=== PATIENT | male | born 1940 | race Caucasian/White ===

== ENCOUNTER 2018-02-24 12:31 | Outpatient (CLI) | payer MEDICARE ==
--- NOTE | 2018-02-24 16:17 | MRI ---
MRI OF RIGHT SHOULDER PERFORMED WITHOUT CONTRAST ENHANCEMENT: HISTORY: Chronic right shoulder pain. History of previous rotator cuff repair. FINDINGS: Some moderate AC joint hypertrophy changes. There is a high-riding humeral head. This is associated with a recurrent rotator cuff tear. This involves the supraspinatus tendon. The tendon is retracte d by as much as 3.2 cm. There is a partial undersurface tear of the undersurface fibers of the anter ior aspect of the infraspinatus tendon. Surgical anchors are noted in the humeral head. There is al so evidence of an undersurface tear of the subscapularis tendon with the biceps tendon being displace d minimally into the joint space. It does not enter the bicipital groove until very late. There kaleb ears to be a split tear of the biceps tendon in addition to these findings. There are some degenerat jhoana changes of the glenohumeral joint space. The inferior glenohumeral ligament is intact. There is very mild atrophy to the supraspinatus muscle. More pronounced atrophy of the superior port ion of the infraspinatus muscle. IMPRESSION: 1. Recurrent rotator cuff tear with a full-thickness supraspinatus tendon tear being retracted by ap proximately 3.2 cm. The AP dimension of the full-thickness component of the tear is approximately 2 cm. There is an undersurface component extending into the infraspinatus tendon. There is very mild atrophy of the supraspinatus muscle and more pronounced atrophy of the infraspinatus. 2. In addition, there is a partial undersurface tear of the subscapularis tendon with subluxation of the biceps tendon. It appears to be more subluxed into the substance of the subscapularis tendon an d there appears to be an associated split tear of the intraarticular portion of the biceps tendon. POS: C
== END 2018-02-24 12:32 | disposition home or self-care (01) ==
LOC: SCSMRI 12:31
PROVIDERS: ATTEND Orthopaedic Surgery
DX: M25.511 Pain in right shoulder (principal); M75.121 Complete rotator cuff tear or rupture of right shoulder, not specified as traumatic; M62.511 Muscle wasting and atrophy, not elsewhere classified, right shoulder

== ENCOUNTER 2018-03-06 15:00 | Outpatient (CLI) | payer MEDICARE ==
--- NOTE | 2018-03-06 21:27 | MRI ---
MRI OF LUMBAR SPINE PERFORMED WITHOUT CONTRAST ENHANCEMENT: 03/06/18 COMPARISON: An MRI study of 08/22/16 done at [facility]. HISTORY: Spinal stenosis, back pain. Scoliosis convexed to the right is again demonstrated. Vertebral bodies a re normal in height. There is fairly pronounced disc narrowing at L2-3, L3-4, L4-5 and L5-S1. There i s no significant periaortic adenopathy demonstrated. Bilateral renal cysts are again noted. T12-L1: Unremarkable. L1-2: Disc bulge is present at this level without significant canal stenosis. There is mild left side d foraminal narrowing. L2-3: Degenerative facet changes at this level are associated with some borderline canal narrowing. T he facet changes are worse on the left. There is a left sided foraminal narrowing. L3-4: There is borderline central canal stenosis noted. Facet changes are associated with some modera te left sided foraminal narrowing. L4-5: Mild degree of canal narrowing with prominent degenerative facet changes. There is disc bulge. There is moderate right foraminal stenosis. L5-S1: Degenerative facet changes more prominent on the right at this level. Associated some mild rig ht sided foraminal stenosis. Also mild left sided foraminal narrowing. IMPRESSION: Areas of mild canal narrowing as discussed above with areas of foraminal stenosis also noted. POS: [facility]
== END 2018-03-06 15:01 | disposition home or self-care (01) ==
LOC: SCSMRI 15:00
PROVIDERS: ATTEND Nurse Practitioner Family
DX: M48.062 Spinal stenosis, lumbar region with neurogenic claudication (principal); M99.83 Other biomechanical lesions of lumbar region
CPT/HCPCS: 72148

== ENCOUNTER 2018-08-04 00:14 | Outpatient (CLI) | payer MEDICARE ==
[2018-08-04 12:58] LABS: Hemoglobin 14.3 g/dL (14.0-18.0); Mean Corpuscular HGB CONC 30.7 g/dL (32.0-36.0); Mean Corpuscular Hemoglobin 29.4 pg (27.0-31.0); Mean Corpuscular Volume 95.7 fL (78.0-98.0); Mean Platelet Volume 8.6 fL (7.4-10.4); Platelet Count 154 thou/uL (130-400); RBC Distribution Width 12.7 % (11.5-14.5); Red Blood Cell (RBC) Count 4.85 mill/uL (4.70-6.10); White Blood Cell (WBC) Count 4.7 thou/uL (4.8-10.8)
[2018-08-04 13:05] LABS: Bilirubin Small (Negative); Blood, Urine Negative (Negative); Clarity CLEAR (Clear); Glucose, Urine (Dipstick) Negative (Negative); Leukocyte Trace (Negative); Nitrite Negative (Negative); Protein, Urine (Dipstick) 30 mg/dL (Neg-Trace); Urobilinogen 0.2 mg/dL (0.2-1.0)
[2018-08-04 13:21] LABS: Anion Gap 9 mmol/L (10-20); BUN (Urea Nitrogen) 22 mg/dL (8.4-25.7); Calc. Creatinine Clearance 0 mL/min (70-130); Carbon Dioxide 30 mmol/L (23-31); Chloride 109 mmol/L (98-107); Estimated GFR-MDRD 69; Glucose 91 mg/dL (83-110); Sodium 144 mmol/L (136-145)
[2018-08-04 13:26] LABS: Bacteria/HPF None Seen HPF (None Seen); Hyaline Casts/LPF 7-10 HYALINE CAST LPF (0-3 Hyaline); Pathc Cast-AUWi Flag 0.54 (0-2.49); RBC/HPF 0-3 HPF (0-3); Squamous Epithelial 0-3 HPF (0-3)
== END 2018-08-04 00:15 | disposition home or self-care (01) ==
LOC: LABBT 00:14
PROVIDERS: ATTEND Orthopaedic Surgery
DX: Z01.818 Encounter for other preprocedural examination (principal); M19.011 Primary osteoarthritis, right shoulder; Z98.890 Other specified postprocedural states
CPT/HCPCS: 80048; 81001; 85027; 87081; 93005; 93010

== ENCOUNTER 2018-08-06 07:33 | Inpatient (IN) | payer MEDICARE ==
[2018-08-04 11:24] VITALS: BMI 25.1
[2018-08-06] MEDS ORDERED: ceFAZolin Sodium 2 GM/100 ML BAG ONE (07:50)
[2018-08-06] MEDS ORDERED: Midazolam HCl 2 mg/2 ml Vial ONE (08:29)
[2018-08-06] MEDS ORDERED: Fentanyl 100 MCG/2 ML VIAL ONE ×3 (08:30→13:18)
[2018-08-06] MEDS ORDERED: Zolpidem Tartrate 5 MG TAB PO PRN ×2 (08:57→13:05)
[2018-08-06] MEDS ORDERED: Ondansetron PF 4 MG/2 ML Vial IVP PRN ×2 (08:57→13:05)
[2018-08-06] MEDS ORDERED: Promethazine HCl 25 MG/ML VIAL IM PRN ×3 (08:57→13:05)
[2018-08-06] MEDS ORDERED: HYDROcodone/Acetaminophen 10/325 mg Tablet PO PRN ×3 (08:57→13:05)
[2018-08-06] MEDS ORDERED: traMADol HCl 50 MG TAB PO PRN ×4 (08:57→13:05)
[2018-08-06] MEDS ORDERED: Fentanyl 100 MCG/2 ML VIAL IV PRN ×2 (08:59→13:07)
[2018-08-06] MEDS ORDERED: Tranexamic Acid 1,000 MG/10 ML VIAL ONE ×2 (11:17→12:29)
[2018-08-06] MEDS ORDERED: ePHEDrine/0.9% NaCl/PF SYRINGE 50 mg/10 ml ONE (11:19)
[2018-08-06] MEDS ORDERED: Sodium Chloride 0.9% 100 ML ONE (11:20)
[2018-08-06] MEDS ORDERED: Ropivacaine 0.2% HCl/PF (40 MG/20 ML VIAL) ONE (12:16)
[2018-08-06] MEDS ORDERED: Ropivacaine 0.5% HCl/PF (150 MG/30 ML VIAL) ONE (12:16)
[2018-08-06] MEDS ORDERED: Glycopyrrolate 0.2 MG/ML 5 ML SYRINGE ONE (12:17)
[2018-08-06] MEDS ORDERED: PROPOFOL 200 MG/20 ML VIAL ONE (12:17)
[2018-08-06] MEDS ORDERED: Ondansetron PF 4 MG/2 ML Vial ONE (12:17)
[2018-08-06] MEDS ORDERED: Dexamethasone 20 MG/5 ML VIAL ONE (12:17)
[2018-08-06] MEDS ORDERED: Rocuronium Bromide 10 MG/ML (10ML VIAL) ONE (12:17)
[2018-08-06] MEDS ORDERED: Ketorolac Tromethamine 30 MG/ML VIAL ONE (12:17)
[2018-08-06] MEDS ORDERED: ePHEDrine 50 MG/ML VIAL ONE (12:17)
[2018-08-06] MEDS ORDERED: Promethazine HCl 25 MG/ML VIAL SLOW IVP PRN (12:18)
[2018-08-06] MEDS ORDERED: Ondansetron HCl/PF 4 MG/2 ML Vial IVP PRN (12:18)
[2018-08-06] MEDS ORDERED: Loratadine 10 MG TAB PO PRN (12:38)
[2018-08-06] MEDS ORDERED: Nitroglycerin 0.4 MG TAB (25 Tab Bottle) SL PRN (12:39)
[2018-08-06] MEDS ORDERED: ALPRAZolam 0.5 MG TAB PO PRN (12:40)
[2018-08-06] MEDS ORDERED: DYMISTA EA NARE PRN (12:41)
[2018-08-06] MEDS ORDERED: Calcium Carbonate 500 MG ChewTAB PO PRN (12:42)
[2018-08-06] MEDS ORDERED: Fioricet 325/50/40 mg Tablet PO PRN (12:42)
[2018-08-06] MEDS ORDERED: hydrALAZINE 20 MG/ML VIAL ONE (12:43)
[2018-08-06] MEDS ORDERED: ROPIVACAINE 0.2% NERVE BLCK SCH (13:05)
--- NOTE | 2018-08-06 14:06 | RAD ---
2 VIEW RIGHT SHOULDER: Date; 08/06/18 INDICATION: Status post right reverse total shoulder arthroplasty. FINDINGS: There is a postoperative appearance of the regional soft tissues with soft tissue air and overlying m etallic bashir. Reverse right shoulder arthroplasty is in place. No hardware complication is seen. IMPRESSION: Postoperative right shoulder. POS: [facility]
[2018-08-06] MEDS ORDERED: Bisacodyl 10 MG SUPP PR PRN (14:23)
[2018-08-06] MEDS ORDERED: diphenhydrAMINE 50 MG CAP PO PRN (14:23)
[2018-08-06] MEDS ORDERED: Acetaminophen 325 MG TAB PO PRN (14:23)
[2018-08-06] MEDS: HYDROcodone/Acetaminophen 10/325 mg Tablet PO PRN (15:29)
[2018-08-06] MEDS: Dextrose 5 %-0.45 % NaCl 1,000 ML IV SCH (15:30)
[2018-08-06] MEDS: Docusate Calcium (SURFAK) 240 MG CAP PO SCH ×2 (15:30→21:20)
[2018-08-06] MEDS: CEFAZOLIN 2 GM in Premix Bag 1 BAG IVPB SCH (16:18)
[2018-08-06] MEDS ORDERED: Vancomycin HCl 1 GM in Premix Bag 1 BAG IVPB SCH (18:00)
[2018-08-06] MEDS ORDERED: CIALIS 5 MG PO SCH (18:00)
[2018-08-06] MEDS ORDERED: Senokot 8.6 MG TAB PO PRN (19:23)
[2018-08-06] MEDS ORDERED: Non-Formulary Item 1 EACH (Azelastine/Fluticasone [Dymista Nasal Spray] 1 SPRAY) EA NARE PRN (19:24)
[2018-08-06] MEDS ORDERED: hydrALAZINE 20 MG/ML VIAL SLOW IVP PRN (19:32)
[2018-08-06] MEDS ORDERED: clonazePAM 1 MG TAB PO SCH (21:00)
[2018-08-06] MEDS ORDERED: Tamsulosin HCl 0.4 MG CAP PO SCH (21:00)
[2018-08-06] MEDS ORDERED: Mirtazapine 15 MG TAB PO SCH (21:00)
[2018-08-06] MEDS ORDERED: Ezetimibe 10 MG TAB PO SCH (21:00)
[2018-08-06] MEDS ORDERED: traZODone HCl 150 MG TAB PO SCH (21:00)
[2018-08-06] MEDS: Famotidine 20 MG TAB PO SCH (21:20)
[2018-08-06] MEDS: Carvedilol 6.25 MG TAB PO SCH (21:21)
[2018-08-06] MEDS: Diazepam 5 MG TAB PO SCH (21:23)
[2018-08-07] MEDS: CEFAZOLIN 2 GM in Premix Bag 1 BAG IVPB SCH (00:07)
--- NOTE | 2018-08-07 02:09 | CON ---
DATE OF CONSULTATION: PRIMARY CARE PHYSICIAN: Kojo Hector MD. PRIMARY TEAM: Dr. Avani Hirsch. REASON FOR CONSULTATION: Medical management. HISTORY OF PRESENT ILLNESS: This is a 78-year-old white male with a known history of rotator cuff tear in his right shoulder, previously repaired several years ago. He has had recurrent tear and came in for a reverse total shoulder arthroplasty. The patient had procedure done this morning. He has been doing well postoperatively except for he had some urinary retention when they tried to remove the Harris, so he has a Harris back in now. He also had some elevated blood pressures in the PACU after surgery that required some p.r.n. hydralazine, and this come down now and fluctuating between 140s to 160s, otherwise doing well. PAST MEDICAL HISTORY: 1. Hypertension. 2. Coronary artery disease. 3. Hyperlipidemia. 4. Benign prostatic hyperplasia. 5. Arthritis. 6. Severe scoliosis with chronic back pain. PAST SURGICAL HISTORY: 1. Tonsillectomy. 2. Hernia repair. 3. Laminectomy in 2006. 4. Right knee surgery x2. 5. Vasectomy. 6. Cardiac stents x5. 7. Rotator cuff repair in 2004. 8. Skin cancer removal. SOCIAL HISTORY: No history of tobacco, alcohol, or illicit drug use. He is , lives with his who is present in the room. Her name is Georgette Bolivar, and she would be his medical decision maker should he be incapacitated. FAMILY HISTORY: Father had elevated cholesterol and at 62 years old of heart disease. Mother is at 32 years old of breast cancer. He also had an uncle with heart attack. ALLERGIES: BACTRIM. MEDICATIONS: 1. Percogesic 325/12.5 mg one tablet q.4 hours as needed. 2. Cialis 5 mg at night as needed. 3. Alprazolam 0.5 mg 4 times a day as needed. 4. Aspirin 81 mg daily. 5. Dymista nasal spray 1 spray in each nostril twice a day as needed. 6. Fioricet 2 tablets every 6 hours as needed for migraines. 7. Tums 500 mg as needed. 8. Candesartan cilexetil 32 mg each morning. 9. Carisoprodol 350 mg 4 times a day. 10. Carvedilol 6.25 mg tablets, 1-1/2 tablets twice a day. 11. Klonopin 1 mg at night. 12. Diazepam 5 mg twice a day. 13. Surfak 240 mg 3 times a day. 14. Acetamide 10 mg at night. 15. Fergon 240 mg daily. 16. [place] 10/325 one tablet 4 times a day. 17. Xyzal 5 mg twice a day as needed. 18. Remeron 15 mg at night. 19. Multivitamin daily. 20. Nitrostat 0.4 mg sublingual q.5 hours as needed for chest pain. 21. Prilosec 40 mg at night. 22. Trazodone 150 mg 1 to 2 tablets at night for insomnia. REVIEW OF SYSTEMS: CONSTITUTIONAL: No fevers. No chills. EYES: No double vision or blurred vision. ENT: No congestion, drainage, or sore throat. CARDIOVASCULAR: No chest pain. No palpitations or racing heart. PULMONARY: No coughing, wheezing, or shortness of breath. GASTROINTESTINAL: No abdominal pain. No nausea or vomiting. No diarrhea or current constipation. He does have to take regular laxatives every day to prevent constipation on his pain medications. GENITOURINARY: No dysuria or hematuria. He did have the urinary retention post surgery as per the HPI and currently has a Harris in place. MUSCULOSKELETAL: He has chronic back pain and postsurgical pain in the right shoulder that is decently controlled right now. SKIN: No rashes or lesions noted. NEUROLOGIC: No numbness, tingling, or focal weakness. PHYSICAL EXAMINATION: VITAL SIGNS: Blood pressure 144/74, pulse 76, respirations 20, O2 saturation 93 % on room air, temperature 98.0. GENERAL: This is a well-developed, well-nourished white male, in no acute distress. HEENT: Pupils are equal, round, and reactive to light. Oropharynx clear without lesions, erythema, or exudate. NECK: Supple. No lymphadenopathy. No thyroid nodules or enlargement. No JVD. HEART: Regular rate and rhythm. No murmurs, rubs, or gallops. LUNGS: Clear to auscultation bilaterally. No wheezes, crackles, or rhonchi. ABDOMEN: Soft and nontender to palpation. Normoactive bowel sounds. No hepatosplenomegaly or other masses. EXTREMITIES: No clubbing, cyanosis, or edema. The patient does have a postsurgical dressing over his right shoulder and has his right arm in a sling. SKIN: No rashes or lesions noted. NEUROLOGIC: He has intact sensation in all extremities. He is able to walk with a steady gait. No facial droop. PSYCHIATRIC: Alert and oriented x3. Normal mood and affect. PREOPERATIVE LABS: CBC with a white blood cell count of 4.7, the rest is normal. Basic metabolic panel is notable for chloride of 109 and anion gap of 9, the rest was normal. Urinalysis showed 30 protein, trace ketones, small bilirubin, trace leukocyte esterase, 7 to 10 white blood cells, and no bacteria seen. EKG done preoperatively shows sinus bradycardia in the 50s with left ventricular hypertrophy, but no acute ST-segment changes. ASSESSMENT: 1. Rotator cuff tear, status post reverse total shoulder arthroplasty of the right side, doing well postoperatively. 2. Known coronary artery disease. We will resume patient's aspirin and Zetia, and we will try and keep blood pressure under control. 3. Hypertension, labile due to pain. We will resume patient's home blood pressure medications. We will give p.r.n. hydralazine as needed for severe elevations. 4. Acute urinary retention secondary to benign prostatic hyperplasia. We will start the patient on tamsulosin 0.4 mg each night. The patient may be able to have the Harris successfully removed after few days on medication. If this problem persists then he will need to see his urologist, Dr. Wallace. 5. Gastrointestinal prophylaxis. We will put the patient on famotidine twice a day. 6. Deep venous thrombosis prophylaxis. The patient is on sequential compression devices. 7. Chronic back pain and postoperative pain. Anesthesiology has been consulted for pain management. Job ID: [id number] [facility]
[2018-08-07] MEDS: HYDROcodone/Acetaminophen 10/325 mg Tablet PO PRN ×3 (03:46→14:33)
[2018-08-07] MEDS: Docusate Calcium (SURFAK) 240 MG CAP PO SCH (07:58)
[2018-08-07] MEDS: Diazepam 5 MG TAB PO SCH (07:58)
[2018-08-07] MEDS: Carvedilol 6.25 MG TAB PO SCH (07:59)
[2018-08-07] MEDS: Famotidine 20 MG TAB PO SCH (07:59)
--- NOTE | 2018-08-07 08:00 | OP ---
DATE OF PROCEDURE: 08/06/2018 PREOPERATIVE DIAGNOSES: 1. Right full-thickness retracted supraspinatus tear with leading edge infraspinatus. 2. Biceps tendinopathy. PROCEDURES PERFORMED: 1. Right reverse shoulder arthroplasty. 2. Biceps tenodesis. HORSE SHOW JUDGE: Rocael Tinsley PA-C. ANESTHESIA: Dr. Howe. The patient received general endotracheal intubation with interscalene block. ESTIMATED BLOOD LOSS: 300 mL. TOURNIQUET TIME: None. IMPLANTS: A 25 mm base plate with a 25 x 36 mm standard Glenosphere, a 6B stem , a high offset tray with a 36 x 6 mm poly, anterior and posterior locking screws 23 and 35 and 20 and 29 nonlocking screws superior and inferior. ANTIBIOTICS: Ancef 2 g, vancomycin 1 g, TXA 1 g. COMPLICATIONS: None. HISTORY OF PRESENT ILLNESS: Mr. Bolivar is a 78-year-old male who had a history of previous mini open rotator cuff repair by Dr Peng Drummond years ago. The patient came in to see me on multiple occasions in the last year for elevated pain. The patient is followed by his primary care provider for chronic pain management. He had a full-thickness rotator cuff tear, was 3 cm retracted, had a leading edge subscapularis tear with changes of the biceps. I discussed with the patient risks and benefits of a revision rotator cuff repair versus superior capsular reconstruction versus the reverse. I discussed the risks and benefits of all procedures. After a long discussion with the patient, he elected with the right reverse shoulder arthroplasty. I discussed he would not have good overhead external rotation, but some overhead elevations likely improve the pain control. I discussed the risks and benefits of surgery to include pain, scar, bleeding, infection, damage to vital structures, decreased range of motion and strength, nonunion, malunion of any fractures, loss of life or limb. The patient understood these risks and benefits and elected to proceed. DESCRIPTION OF PROCEDURE: Time-out was performed designating the patient's right upper extremity as the operative site based on site, consents, and marking. After time-out, the patient's right upper extremity was prepped and draped in a sterile fashion. The patient had a deltopectoral incision made, came down onto the vein and it was taken medially, cauterized and ultimately was ligated. We exposed the patient's conjoined and deltopectoral interval, we came down and found his biceps was flattened and frayed throughout its course. We came down, the subscap was peeling off which we took down the subscap and the anterior capsule to expose the head. There was no attachment. The superior cuff had been torn off and retracted. We exposed the head, cut the articular surface removing the articular surface. We exposed the patient's glenoid. We did a 360 degrees of the labrum staying on bone using a curette inferior and rongeur to remove any inferior cartilage, placed my 25 mm base plate centered inferiorly at a good position. We then drilled and reamed and then cleaned up the peripheral surface and placed our 25 mm base plate, placed the anterior and posterior nonlocking screws in position, drilling and filling the superior and inferior locking screws, had a good stable base plate placement. A 36 mm standard sphere in position and screwed into place. We backed the humerus. We had broached and placed originally a 6 tray and cover to expose the head. To expose the glenoid, we moved back and elected to place a final size 6 into position. We trialed with a 6 high offset tray, and we were able to get it into place at the 6 o'clock position in the most lateral offset, I felt like we had overall good stability, had no shuck. We then washed. We placed our final stem and I placed a #5 Ethibond around the stem to help sew the subscap down to its self. We then reduced the implant in position with good overall tracking with the final implant. We sewed the subscap back down to the #5 Ethibond, cut the stitches. We took the biceps and used #1 Vicryl and sewed it into the soft tissue from the remnant cuff as well as left subscap and the posterior soft tissues to help with three [id number] stitches to close the interval as best we could. We then washed, closed the deltopectoral interval with 0 Vicryl, closed the subcu with 2 -0 and bashir. The patient will be admitted to the hospital. I am concerned given the patient's medical history. We will consult Medicine. Pain will be following in-house for his pain control. There is concern about polypharmacy given the patient's medication list. The patient will be followed in-house and discharged home either tomorrow or the next day depending on how he does. Job ID: [id number] [facility]
[2018-08-07] MEDS ORDERED: Milk Of Magnesia 30 ML UDCUP PO PRN ×2 (08:15→09:00)
[2018-08-07] MEDS ORDERED: Polyethylene Glycol 3350 17 GM Packet PO PRN (08:15)
[2018-08-07] MEDS ORDERED: Eucerin (Mineral Oil/Petrolatum,White) 30 gm Jar TOP PRN (08:15)
[2018-08-07] MEDS: Dextrose 5 %-0.45 % NaCl 1,000 ML IV SCH (08:21)
[2018-08-07] MEDS ORDERED: Senokot S 8.6-50 MG TAB PO SCH (09:00)
[2018-08-07] MEDS ORDERED: Aspirin 81 mg Enteric Coated Tablet PO SCH (09:00)
[2018-08-07] MEDS ORDERED: Ferrous Gluconate 324 MG TAB PO SCH (09:00)
[2018-08-07] MEDS ORDERED: Multivit, Therapeutic 1 TAB PO SCH (09:00)
[2018-08-07 11:42] VITALS: TEMP 97.4
--- NOTE | 2018-08-07 15:27 | DIS ---
DATE OF ADMISSION: 08/06/2018 DATE OF DISCHARGE: 08/07/2018 PREOPERATIVE DIAGNOSES: 1. Right shoulder rotator cuff tear with history of repair. 2. Hypertension. 3. Coronary artery disease. 4. Hyperlipidemia. 5. Benign prostatic hyperplasia. 6. Scoliosis, severe chronic back pain. 7. History of chronic pain treatment. HISTORY OF PRESENT ILLNESS: Mr. Bolivar is a 78-year-old male with history of right shoulder pain, came in for right reverse total shoulder arthroplasty. Underwent right reverse total shoulder arthroplasty yesterday, the patient postoperatively had some urinary retention, has been followed by Dr. Wallace. Harris was placed after an , so therefore, the patient had a Harris bag in place and follow up with Dr. Wallace in a week. The patient will keep his sling on, begin elbow, wrist, and hand motion. Follow up with me in 2 weeks to begin passive range of motion of his right reverse shoulder arthroplasty. The patient will remain non-weight bearing. He was given 15 hydrocodone tablets, which will all he will receive. He is followed Dr. Hector, who will refill his previous chronic pain medications coming up at the end of this month. The patient will be discharged with a Harris leg bag and sling and will follow up with me as stated above. Job ID: [id number]
[2018-08-07 15:57] VITALS: BP 164/74
--- NOTE | 2018-08-07 17:48 | PDOC.PN ---
- Subjective Encounter Start Date: 08/07/18 Encounter Start Time: 09:30 Patient seen and examined for med mngt. No new complaints. No overnight events - Objective MAR Reviewed: Yes Vital Signs & Weight: Vital Signs (12 hours) Temp Pulse Resp BP BP Pulse Ox 08/07/18 15:40 97.4 F L 69 16 164/74 H 96 08/07/18 11:42 97.4 F L 60 18 146/78 H 97 08/07/18 08:10 97.7 F 74 20 137/71 94 L 08/07/18 07:59 137/71 08/07/18 07:58 94 L Weight Weight 170 lb I&O: 08/06/18 08/07/18 08/08/18 06:59 06:59 06:59 Intake Total 2305 600 Output Total 2925 350 Balance -620 250 Phys Exam - Physical Examination Constitutional: NAD Respiratory: no wheezing, no rhonchi Cardiovascular: RRR, no rub Gastrointestinal: soft, non-tender, positive bowel sounds Musculoskeletal: no edema Dx/Plan - Plan DVT proph w/SCDs 1. CAD 2. HTN 3. Chronic pain syndrome 4. Anxiety 5. Urinary retention s/p sin catheter PLAN: Cont current meds as below Will follow. Full code. DPOA - self/family Review of Systems - Review of Systems Respiratory: negative: Cough, Dry, Shortness of Breath, Hemoptysis, SOB with Excertion, Pleuritic Pain, Sputum, Wheezing Cardiovascular: negative: chest pain, palpitations, orthopnea, paroxysmal nocturnal dyspnea, edema, light headedness, other - Medications/Allergies Allergies/Adverse Reactions: Allergies Allergy/AdvReac Type Severity Reaction Status Date / Time sulfamethoxazole Allergy Rash Verified 08/04/18 11:26 [From Bactrim] trimethoprim [From Bactrim] Allergy Rash Verified 08/04/18 11:26
== END 2018-08-07 17:15 | disposition home or self-care (01) | DRG 483 ==
LOC: SDC 07:33 → SURG A 12:48
PROVIDERS: ADMIT Orthopaedic Surgery; ATTEND Orthopaedic Surgery
PROC: 0RRJ00Z Replacement of Right Shoulder Joint with Reverse Ball and Socket Synthetic Substitute, Open Approach (ICD-10-PCS; principal; 2018-08-06)
PROC: 0LS30ZZ Reposition Right Upper Arm Tendon, Open Approach (ICD-10-PCS; 2018-08-06)
PROC: 0T9B70Z Drainage of Bladder with Drainage Device, Via Natural or Artificial Opening (ICD-10-PCS; 2018-08-06)
DX: M75.121 Complete rotator cuff tear or rupture of right shoulder, not specified as traumatic (principal); I25.10 Atherosclerotic heart disease of native coronary artery without angina pectoris; I10 Essential (primary) hypertension; N40.1 Benign prostatic hyperplasia with lower urinary tract symptoms; R33.8 Other retention of urine; M54.9 Dorsalgia, unspecified; E78.5 Hyperlipidemia, unspecified; M19.90 Unspecified osteoarthritis, unspecified site; M41.9 Scoliosis, unspecified; G89.4 Chronic pain syndrome; F41.9 Anxiety disorder, unspecified; M75.21 Bicipital tendinitis, right shoulder; Z98.890 Other specified postprocedural states; Z90.89 Acquired absence of other organs; Z98.61 Coronary angioplasty status
CPT/HCPCS: A4306; J0360; J0690; J1100; J1885; J2250; J2405; J2704; J2795; J3010; J3370; J3490; J7050

== ENCOUNTER 2019-09-17 21:23 | Inpatient (IN) | payer MEDICARE ==
[2019-09-17] MEDS ORDERED: EPINEPHrine 4 MG in Dextrose 5% in Water 250 ML IV SCH (23:15)
[2019-09-17 23:43] LABS: Actual Bicarbonate (HCO3a) 21.6 mEq/L (22-28); Base Excess (BEa) -5.6 mEq/L (-2.0 to +3.0); CO2 Tension 49.1 mmHg (35.0-45.0); Calcium, Ionized 1.09 mmol/L (1.12-1.30); Carboxyhemoglobin (COHb) 0.5 gm% (0.0-3.0); Hemoglobin (Hb) 12.8 g/dL (14.0-18.0); O2 Tension (PaO2), arterial 109.8 mmHg (> 70.0); Potassium - ABG Lab 5.69 mmol/L (3.70-5.30); pH, Arterial 7.26 (7.35-7.45)
[2019-09-17 23:44] LABS: ALV-art Gradient 541.825 (0-20); Puncture Site RRA
--- NOTE | 2019-09-18 01:01 | PDOC.HHP ---
Hospitalist HPI - History of Present Illness s/p cardiac arrest History of Present Illness: most of the history was obtain from from phone call with and transfer papers Case of an 79y/o male with pmhx of cad htn and hypercholesterolemia who comes to hospital transfer from [facility] s/p cardiac arrest. apparently patient was o his usual state of health until today, when according to he was eating, she went to do some dishes and heard some coughing and gurgling sounds, when she went to see the patient he was face down on the table with blue lips and called the ems. at arrival patient was found hypoxic and with bradicardia and the went into asystole where did 3 cycles of cpr and had a LMA placed. patient arrived at [facility] where he again coded again and receive 2 cycles and a EET was placed and epi drip was started. patient was transfered to this institution for critical care coverage dr oswald accpeted case. Hospitalist ROS - Review of Systems ROS unobtainable: due to endotracheal tube Hospitalist History - Past Medical History Cardiac: reports: CAD, HTN, Hyperlipidemia - Past Surgical History Other Surgical History: unable to asses due to pt mental status - Family History Other Family History: unable to asses due to mental status - Social History Living Situation: With Family Other Social History: unable to asses due to mental status - Exam General Appearance: ill appearing Eye: PERRL, anicteric sclera ENT: normocephalic atraumatic, no oropharyngeal lesions Neck: supple, symmetric, no JVD Heart: RRR, no murmur, no gallops Respiratory: CTAB, no wheezes, no rales Gastrointestinal: soft, non-tender, non-distended Extremities: no cyanosis, no clubbing, no edema Skin: normal turgor, no lesions, no rashes Neurological - other findings: sedated Musculoskeletal - other findings: sedated Psychiatric - other findings: sedated Hospitalist Results - Labs Lab results: ABG pH 7.26 (7.35-7.45) L 09/17/19 23:21 ABG pCO2 49.1 mmHg (35.0-45.0) H 09/17/19 23:21 ABG pO2 109.8 mmHg (> 70.0) H 09/17/19 23:21 Hospitalist H&P A/P - Problem (1) Sudden cardiac arrest Code(s): I46.9 - CARDIAC ARREST, CAUSE UNSPECIFIED Status: Acute (2) CAD (coronary artery disease) Code(s): I25.10 - ATHSCL HEART DISEASE OF [place] CORONARY ARTERY W/O ANG PCTRS Status: Acute (3) MINO (acute kidney injury) Code(s): N17.9 - ACUTE KIDNEY FAILURE, UNSPECIFIED Status: Acute (4) Hyperkalemia Code(s): E87.5 - HYPERKALEMIA Status: Acute (5) Respiratory failure Code(s): J96.90 - RESPIRATORY FAILURE, UNSP, UNSP W HYPOXIA OR HYPERCAPNIA Status: Acute (6) Leukocytosis Code(s): D72.829 - ELEVATED WHITE BLOOD CELL COUNT, UNSPECIFIED Status: Acute (7) Anoxic brain damage Status: Acute - Plan Plan: s/p cardiac arrest - had two episodes of cardiac arrest, seems to be secondary to respiratory failure. ekg w/o st ischemic changes. initial troponin negatives , i expect this to increase after cpr. will order serial troponins to follow trend, will also get a 2d echo and contracts specialist evaluation. his contracts specialist is amna rice - from the history patient seems to have aspirated resulting in hypoxia, bradycardia with subsequent cadiac arrest. patient intubated at site. pca consulted f/u abgs suspected anoxic brain injury - patient s/p 2 cardiac arrest, unresponsive w/o sedation. h/s for anoxic brain injury. will order a head ct and consult neurologist for evaluation mino - likely secondary to cardiac arrest, will start ivfs f/u u/o and creatinine values hyperkalemia - at initial evaluation 6.6, ekg w/o peak t waves or pr prologation. pt treated w ivfs repeated k w abgs at 5.6, will continue to monitor leukocytosis - patient with leukocytosis 26.3, w elevated lactid acid. likely secondary to cardiac arrest, none the less sepsis protocol was started at the [facility] w ivfs cultures and abx cefe/vanc. refers pt has been having cough for months, does refers his pcp was seeing pt for this, seems to be seasonal allergies. will contine w broad spectrum abx
[2019-09-18 02:19] LABS: Lactic Acid 2.4 mmol/L (0.5-2.2)
[2019-09-18 04:25] VITALS: BMI 25.5
[2019-09-18] MEDS ORDERED: Vancomycin 1 GM in Premix Bag 1 BAG IVPB SCH (06:15)
[2019-09-18] MEDS ORDERED: Cefepime 2 GM in Sodium Chloride 0.9% 100 ML IVPB SCH (06:30)
[2019-09-18 07:04] LABS: ALT (SGPT) 48 U/L (8-55); AST (SGOT) 47 U/L (5-34); Albumin 3.3 g/dL (3.4-4.8); Alkaline Phosphatase 63 U/L (40-110); Anion Gap 14 mmol/L (10-20); BUN (Urea Nitrogen) 33 mg/dL (8.4-25.7); Bilirubin, Total 0.6 mg/dL (0.2-1.2); Calc. Creatinine Clearance 46 mL/min (70-130); Calcium 7.7 mg/dL (7.8-10.44); Carbon Dioxide 21 mmol/L (23-31); Chloride 113 mmol/L (98-107); Estimated GFR-MDRD 44; Globulin 2.2 g/dL (2.4-3.5); Glucose 169 mg/dL (83-110); Potassium 4.5 mmol/L (3.5-5.1); Protein, Total 5.5 g/dL (5.8-8.1); Sodium 143 mmol/L (136-145)
[2019-09-18 07:45] LABS: Band 18 % (5-11); Hemoglobin 11.8 g/dL (14.0-18.0); Lymphocytes 7 % (21-51); MDiff Complete? YES; Mean Corpuscular HGB CONC 32.1 g/dL (32.0-36.0); Mean Corpuscular Hemoglobin 31.9 pg (27.0-31.0); Mean Corpuscular Volume 99.3 fL (78.0-98.0); Mean Platelet Volume 9.1 fL (7.4-10.4); Monocytes 8 % (0-10); Neutrophil 67 % (42-75); Platelet Count 156 thou/uL (130-400); RBC Distribution Width 13.2 % (11.5-14.5); White Blood Cell (WBC) Count 18.2 thou/uL (4.8-10.8)
--- NOTE | 2019-09-18 08:52 | RAD ---
PORTABLE CHEST: History: Respiratory failure. FINDINGS: Heart size appears borderline. Endotracheal and NG tubes are in satisfactory position. There is some right parahilar and upper lobe infiltrative lung change present. IMPRESSION: 1. Increased parenchymal changes in the right parahilar and upper lobe regions suggesting some infilt rative change. 2. Endotracheal and NG tubes in satisfactory position. POS: [facility]
[2019-09-18] MEDS: Sodium Chloride 0.9% 1,000 ML IV SCH ×3 (09:21→21:47)
[2019-09-18] MEDS: Cefepime 2 GM in Sodium Chloride 0.9% 100 ML IVPB SCH ×2 (09:33→21:37)
[2019-09-18] MEDS: Acetaminophen 650 MG Suppository PR PRN (12:53)
--- NOTE | 2019-09-18 13:00 | CON ---
DATE OF CONSULTATION: 09/18/2019 INDICATION FOR CONSULTATION: A 79-year-old gentleman with an acute respiratory cardiac arrest. HISTORY OF PRESENT ILLNESS: This is a 79-year-old gentleman, who is on the ventilator, unresponsive, and has what appears to be neurological damage with jerking. He was at home yesterday evening, he was eating some scrambled eggs and some dinner with some toast and apparently the was in the kitchen and she heard him hit the table. She turned around, he had a fall face-first on the table and she tried to do CPR after calling 911. 911 arrived about 5 minutes later and noticed that the patient apparently was not breathing. He was intubated and CPR was initiated and was continued. She was doing chest compressions, but no respiratory breaths were given by the family. He does have a history of coronary artery disease. He has undergone angioplasty and stent placement x3 several years ago and then underwent repeat angioplasty and stent placement x2 by Dr. Scherer about 2 years ago. He has had recently no complaints of chest pain. He has had ablation within the last few months. He has also followed by Dr. Kojo Hector . He has had a history of benign prostatic hypertrophy. He is followed by Dr. Wallace. Otherwise, he has been doing relatively well according to the . But, she says he has been complaining of being fatigued recently, but has not had any chest pain or significant shortness of breath. He did not have any history of him having cardiomyopathy from what the says she is aware that he has a bad heart and he has been doing relatively well and staying relatively active at home. PAST MEDICAL HISTORY: Significant for hypertension, hypercholesterolemia, coronary artery disease, and benign prostatic hypertrophy. He may have undergone TURP in the past. REVIEW OF SYSTEMS: A 12-point is relatively unremarkable except for what was noted in the history of present illness. ALLERGIES: HE IS ALLERGIC TO BACTRIM. MEDICATIONS: PHYSICAL EXAMINATION: GENERAL: Reveals an elderly gentleman, who is unresponsive on the ventilator. He has jerking motions, which appear to be due to some type of a neurologic injury. He may be having underlying seizures. HEENT: Unremarkable. Carotid pulses are present without any bruits. CHEST: His chest is actually clear to auscultation. I did not hear any rales, rhonchi, or wheezing. CARDIOVASCULAR: Regular at this time. There are no gross murmurs, heaves, thrills, bruits, or rubs. ABDOMEN: Shows obesity with positive bowel sounds. No organomegaly or masses were noted. I cannot elicit any tenderness obviously at this time. EXTREMITIES: Showed no clubbing, cyanosis, or edema. Pedal pulses are present. NEUROLOGIC: As noted above, he is not sedated. He is on the ventilator and he is unresponsive with jerking motions. LABORATORY DATA: Shows a sodium of 143, potassium 4.5, his BUN was 33, creatinine 1.53, and blood sugar was 169. Lactic acid 2.4. Troponin I was really 0.07, increased up to 0.12 and BNP was 376. DIAGNOSTIC STUDIES: EKG shows a normal sinus rhythm. There were no acute changes. No indication of previous myocardial infarction or ischemia. IMPRESSION AND PLAN: 1. A 79-year-old gentleman with history of coronary artery disease, who underwent angioplasty and stent placement a couple years ago. He has been followed on a routine basis. He has been doing well, who had a sudden respiratory cardiac arrest, which may be due to aspiration with respiratory arrest causing the severe hypoxia and then cardiac arrest or possibly due to arrhythmias, which is yet to be determined. At this time, he appears to had some significant anoxic brain injury, which he may not recover from. Certainly, we will continue to support the patient as much as possible. In the interim, we will try to obtain records from Dr. Scherer's office to see exactly what the status of his heart was on the last echocardiogram, stress test, and on the last cardiac catheterization. We will also obtain an echocardiogram here. We will review that and further recommendations will perhaps depend on the results of the echocardiogram. 2. History of hypertension. Blood pressure is slightly elevated at this time. We will manage his medications with starting more medications to lower the blood pressure. 3. Hypercholesterolemia. At this time, we will hold statins. 4. What appears to be anoxic brain injury. He may or may not recover, this will be in the next 48 hours. Should he not have any improvement, an EEG most likely will be performed. We will review a repeat CT scan, I believe he had one at [facility] already, it did not show any significant abnormalities. This will need to be repeated within the next 48 hours likely. Amos ID: [id number]
--- NOTE | 2019-09-18 13:30 | PDOC.HOSPP ---
- Subjective Encounter Date: 09/18/19 Encounter Time: 08:40 Subjective: is on vent, not sedated, obtunded and has myoclinic jerks all over at bedside - Objective Vital Signs & Weight: Vital Signs (12 hours) Pulse Resp BP Pulse Ox 09/18/19 12:00 20 09/18/19 10:42 85 09/18/19 10:00 20 09/18/19 08:00 20 96 09/18/19 06:48 85 09/18/19 06:00 20 09/18/19 04:00 20 09/18/19 02:30 81 118/66 09/18/19 02:00 20 Weight Weight 178 lb 3.2 oz Most Recent Monitor Data Heart Rate from ECG 85 NIBP 174/71 NIBP BP-Mean 105 Respiration from ECG 22 SpO2 98 I&O: 09/17/19 09/18/19 09/19/19 06:59 06:59 06:59 Intake Total 949 Output Total 950 665 Balance -1 -665 Result Diagrams: 09/18/19 06:32 09/18/19 06:32 Hospitalist ROS - Medication Medications: Active Medications Generic Name Dose Route Start Last Admin Trade Name Freq PRN Reason Stop Dose Admin Acetaminophen 650 mg 09/18/19 00:29 09/18/19 12:53 Tylenol [place] 650 mg Q4H PRN Administration Headache/Fever/Mild Pain (1-3) Sodium Chloride 1,000 mls @ 70 mls/hr 09/18/19 01:00 09/18/19 09:21 Normal Saline 0.9% IV Not Given .[id number] ARLYN Cefepime HCl 2 gm/ Sodium 100 mls @ 200 mls/hr 09/18/19 09:00 09/18/19 09:33 Chloride IVPB 100 mls Q12H ARLYN Administration - Exam General Appearance: ill appearing Eye: anicteric sclera ENT: no oropharyngeal lesions, dry oral mucosa Neck: supple, no JVD Heart: RRR, no murmur Respiratory: no wheezes, no rales Gastrointestinal: soft, non-tender, non-distended, normal bowel sounds Extremities: no cyanosis, no edema Neurological: cranial nerve grossly intact, no focal deficits Hosp A/P (1) Respiratory failure Code(s): J96.90 - RESPIRATORY FAILURE, UNSP, UNSP W HYPOXIA OR HYPERCAPNIA Status: Acute Qualifiers: Chronicity: acute (2) Sudden cardiac arrest Code(s): I46.9 - CARDIAC ARREST, CAUSE UNSPECIFIED Status: Acute (3) MINO (acute kidney injury) Code(s): N17.9 - ACUTE KIDNEY FAILURE, UNSPECIFIED Status: Acute (4) Anoxic brain damage Status: Suspected (5) CAD (coronary artery disease) Code(s): I25.10 - ATHSCL HEART DISEASE OF [place] CORONARY ARTERY W/O ANG PCTRS Status: Acute Qualifiers: Coronary Disease-Associated Artery/Lesion type: [place] artery [place] vs. transplanted heart: [place] heart Associated angina: without angina Qualified Code(s): I25.10 - Atherosclerotic heart disease of [place] coronary artery without angina pectoris (6) Dyslipidemia Code(s): E78.5 - HYPERLIPIDEMIA, UNSPECIFIED Status: Chronic (7) BPH (benign prostatic hyperplasia) Code(s): N40.0 - BENIGN PROSTATIC HYPERPLASIA WITHOUT LOWER URINRY TRACT SYMP Status: Chronic Qualifiers: Lower urinary tract symptom presence: unspecified whether lower urinary tract symptoms present Qualified Code(s): N40.0 - Benign prostatic hyperplasia without lower urinary tract symptoms (8) Scoliosis Status: Chronic Qualifiers: Scoliosis type: unspecified scoliosis - Plan s/p cardiac arrest with cpr and intubation, likely has anoxic brain injury has myoclonic jerks eeg stat, neuro consultation echo is pending I have d/w and given her full updates, she is aware his prognosis is very poor at present is on cefepime, vanc, iv fluids and pressure support prognosis guarded to poor.
--- NOTE | 2019-09-18 14:10 | CON ---
DATE OF CONSULTATION: 09/18/2019 CONSULTING PHYSICIAN: Hospitalist Services. IMPRESSION: Anoxic encephalopathy with myoclonic jerks. The patient does not meet brain criteria at this point. These clinical findings are usually suggestive of a very poor prognostic picture. PLAN: Continue supportive measures for the next 48 hours. HISTORY OF PRESENT ILLNESS: Mr. Bolivar is a 79-year-old man. He was sitting at his kitchen table, when his heard gurgling noises. She found him slumped over the table. EMS was called. The patient became bradycardic and then, asystolic. He was resuscitated and brought into [facility]. He had another cardiac arrest there, he was resuscitated once again and transferred here. He has been on the ventilator. He has not shown any spontaneous breathing. He has been in the normal sinus rhythm. His vital signs have otherwise been stable. He has continued to have some diffuse myoclonic twitching. He has expressed his wishes for nonaggressive measures, if his prognosis is poor. PAST MEDICAL HISTORY: As per chart. SOCIAL HISTORY: No tobacco. He is . ALLERGIES: SULFA. FAMILY HISTORY: Noncontributory. REVIEW OF SYSTEMS: Not obtainable. PHYSICAL EXAMINATION: VITAL SIGNS: Blood pressure 179/78, respirations 20, and pulse 88. HEENT: Pupils are equal. Eyes are conjugate. Conjunctivae clear. He has a corneal response to stimulation. He did not have a significant gag response associated with suctioning. EXTREMITIES: No cyanosis, clubbing, or edema. NEUROLOGIC: Unresponsive to stimulation otherwise. He has some diffuse myoclonus. Doll's head maneuver produce some conjugate deviation. SUMMARY: This gentleman suffered cardiac arrest. He still has evidence of brainstem function. He is experiencing myoclonus, which care is a poor prognosis, I explained this to his . I will follow his clinical course. Job ID: [id number]
--- NOTE | 2019-09-18 14:40 | CON ---
DATE OF CONSULTATION: HISTORY OF PRESENT ILLNESS: Bob Bolivar is a 79-year-old unfortunate gentleman who last night was transferred from the [facility] following an episode of choking sensation at home followed by a cardiopulmonary arrest. tells me that EMS arrived in 5 minutes, taken to the [facility] in [place]. En route, he was given multiple amps of epinephrine. He was intubated in the ER, and a femoral line was inserted by the ER physician there. He had a CT done of his head. Following his intubation, he had an additional episode of cardiac arrest requiring additional CPR and epinephrine. They were finally able to get his blood pressure up, and he was started on epinephrine drip. He then was transferred over here. is at the bedside. She otherwise gives an adequate and additional history. States the is relatively active. Does not smoke at this time. PAST MEDICAL HISTORY: Coronary artery disease, BPH, back pain, hypertension. PREVIOUS SURGERIES: Laminectomy, multiple cardiac stents, rotator cuff surgery, tonsils, hernia, right knee surgery. MEDICATIONS: He has had a long list of medicines from home, which includes: 1. Trazodone. 2. Klonopin. 3. Cialis 5. 4. Omeprazole 40. 5. Nitroglycerin. 6. [place] pain medicine. 7. Coreg twice a day. 8. Calcium. 9. Fioricet. 10. Nose spray. 11. Xanax 1 mg p.r.n. ALLERGIES: SULFA. REVIEW OF SYSTEMS: Otherwise unobtainable. PHYSICAL EXAMINATION: GENERAL: The patient has a tonic-clonic activity. HEENT: Pupils are dilated about 4 mm, still on the epinephrine drip. VITAL SIGNS: His blood pressure is now adequate 150/70, pulse 80, respiratory rate 20, saturations 100%, temperature 98.4. CHEST: Decreased breath sounds, no wheezing. CARDIAC: Sinus tach. ABDOMEN: Soft. NEUROLOGICAL: Unresponsive. LABORATORY DATA: PO2 is 109, PCO2 of 49, , rate of 16, 100%, 500 tidal volume, PEEP of 10. Creatinine 1.53. is normal. DIAGNOSTIC STUDIES: His chest x-ray shows questionable right-sided infiltrate, endotracheal tube is appropriate with a small pleural effusion. ASSESSMENT: 1. Severe anoxic injury, status post cardiopulmonary arrest, multiple cardiopulmonary resuscitations, multiple epinephrine IV. 2. Coronary artery disease. 3. Renal failure. 4. Pleural effusion. 5. Morbid obesity. 6. Chronic pain syndrome. PLAN: EEG ordered, await input from Neurology. Prognosis remains guarded. Pulmonary Critical Care will follow. Consultation note, critical care time 45 minutes. Job ID: [id number]
[2019-09-18] MEDS: Vancomycin 1.5 GRAM/300 ML BAG 1.5 GM in Premix Bag 1 BAG IVPB SCH (21:46)
[2019-09-19 04:54] LABS: #Monocytes 1.1 thou/uL (0.11-0.59); #Neutrophils 8.9 thou/uL (1.40-6.50); %Basophils 0.3 % (0.0-1.0); %Eosinophils 0.2 % (0.0-10.0); %Lymphocytes 9.1 % (21.0-51.0); %Monocytes 9.6 % (0.0-10.0); %Neutrophils 80.8 % (42.0-75.0); Mean Corpuscular HGB CONC 32.7 g/dL (32.0-36.0); Mean Corpuscular Volume 98.1 fL (78.0-98.0); Mean Platelet Volume 9.5 fL (7.4-10.4); Platelet Count 105 thou/uL (130-400); Platelet Morphology Comment Appears Decreased; Red Blood Cell (RBC) Count 3.43 mill/uL (4.70-6.10); White Blood Cell (WBC) Count 10.9 thou/uL (4.8-10.8)
[2019-09-19 05:01] LABS: Anion Gap 12 mmol/L (10-20); BUN (Urea Nitrogen) 23 mg/dL (8.4-25.7); Calc. Creatinine Clearance 79 mL/min (70-130); Calcium 8.1 mg/dL (7.8-10.44); Carbon Dioxide 20 mmol/L (23-31); Chloride 115 mmol/L (98-107); Estimated GFR-MDRD 83; Glucose 96 mg/dL (83-110); Potassium 3.4 mmol/L (3.5-5.1); Sodium 144 mmol/L (136-145)
--- NOTE | 2019-09-19 07:33 | RAD ---
CHEST 1 VIEW: INDICATION: History of intubation. COMPARISON: Prior exam dated 09/18/2019. FINDINGS: ET tube and gastric catheter are unchanged. There is hypoventilation. There are persistent patchy o pacities within the right upper lobe and right lower lobe. No pneumothorax is evident. Osseous stru ctures are similar-appearing. IMPRESSION: Stable exam. POS: BH
[2019-09-19] MEDS: Cefepime 2 GM in Sodium Chloride 0.9% 100 ML IVPB SCH ×2 (08:46→20:29)
--- NOTE | 2019-09-19 09:34 | PRG ---
DATE OF SERVICE: 09/19/2019 SUBJECTIVE: Bob Bolivar is a 79-year-old gentleman, remains in the ICU on the vent, intubated, unresponsive. Pupils are dilated. OBJECTIVE: VITAL SIGNS: His temperature was 101.3 yesterday. Pulse 85, respiratory rate 18, and blood pressure CHEST: Bilateral rhonchi and crackles. CARDIAC: Normal S1 and S2. No gallops. ABDOMEN: No masses. LABORATORY DATA: White count 10,000, hemoglobin and hematocrit are 11 and 33, platelet count is low. His chest x-ray shows . ASSESSMENT: Anoxic injury, status post cardiopulmonary arrest, prolonged CPR. PLAN: Continue supportive care. Family is aware of the prognosis. Still on broad-spectrum antibiotics, we will probably deescalate this tomorrow. Await input from Neurology. One-half hour of critical time. Job ID: [id number]
--- NOTE | 2019-09-19 10:55 | PDOC.HOSPP ---
- Subjective Encounter Date: 09/19/19 Encounter Time: 07:45 Subjective: on vent, obtunded, is off sedation no myoclonic jerks witnessed this am - Objective Vital Signs & Weight: Vital Signs (12 hours) Pulse Resp BP Pulse Ox 09/19/19 10:29 79 09/19/19 10:00 17 09/19/19 08:00 18 09/19/19 07:24 95 09/19/19 06:50 81 09/19/19 06:00 20 09/19/19 04:00 20 09/19/19 02:50 76 09/19/19 02:00 20 09/19/19 00:00 20 09/18/19 23:29 93 168/76 H Weight Admit Weight 178 lb 3.2 oz Weight 178 lb 3.2 oz Most Recent Monitor Data Heart Rate from ECG 79 NIBP 176/78 NIBP BP-Mean 110 Respiration from ECG 17 SpO2 95 I&O: 09/18/19 09/19/19 09/20/19 06:59 06:59 06:59 Intake Total 949 2003 Output Total 950 2545 660 Balance -1 -536 -660 Result Diagrams: 09/19/19 03:55 09/19/19 03:55 Hospitalist ROS - Medication Medications: Active Medications Generic Name Dose Route Start Last Admin Trade Name Freq PRN Reason Stop Dose Admin Acetaminophen 650 mg 09/18/19 00:29 09/18/19 12:53 Tylenol [place] 650 mg Q4H PRN Administration Headache/Fever/Mild Pain (1-3) Sodium Chloride 1,000 mls @ 70 mls/hr 09/18/19 01:00 09/18/19 21:47 Normal Saline 0.9% IV 1,000 mls .[id number] ARLYN Administration Cefepime HCl 2 gm/ Sodium 100 mls @ 200 mls/hr 09/18/19 09:00 09/19/19 08:46 Chloride IVPB 100 mls Q12H ARLYN Administration Vancomycin HCl 1.5 gm/ Device 300 mls @ 200 mls/hr 09/18/19 22:00 09/18/19 21 :46 IVPB 300 mls 2200 ARLYN Administration - Exam General Appearance: ill appearing Eye: PERRL, anicteric sclera ENT: no oropharyngeal lesions, dry oral mucosa Neck: supple, no JVD Heart: RRR, no murmur Respiratory: no wheezes, no rales, rhonchi Gastrointestinal: soft, non-tender, non-distended, normal bowel sounds Extremities: no cyanosis, no edema Neurological: cranial nerve grossly intact, no focal deficits Hosp A/P (1) Respiratory failure Code(s): J96.90 - RESPIRATORY FAILURE, UNSP, UNSP W HYPOXIA OR HYPERCAPNIA Status: Acute Qualifiers: Chronicity: acute (2) Sudden cardiac arrest Code(s): I46.9 - CARDIAC ARREST, CAUSE UNSPECIFIED Status: Acute (3) MINO (acute kidney injury) Code(s): N17.9 - ACUTE KIDNEY FAILURE, UNSPECIFIED Status: Acute (4) Anoxic brain damage Status: Suspected (5) CAD (coronary artery disease) Code(s): I25.10 - ATHSCL HEART DISEASE OF [place] CORONARY ARTERY W/O ANG PCTRS Status: Chronic Qualifiers: Coronary Disease-Associated Artery/Lesion type: [place] artery [place] vs. transplanted heart: [place] heart Associated angina: without angina Qualified Code(s): I25.10 - Atherosclerotic heart disease of [place] coronary artery without angina pectoris (6) Dyslipidemia Code(s): E78.5 - HYPERLIPIDEMIA, UNSPECIFIED Status: Chronic (7) BPH (benign prostatic hyperplasia) Code(s): N40.0 - BENIGN PROSTATIC HYPERPLASIA WITHOUT LOWER URINRY TRACT SYMP Status: Chronic Qualifiers: Lower urinary tract symptom presence: unspecified whether lower urinary tract symptoms present Qualified Code(s): N40.0 - Benign prostatic hyperplasia without lower urinary tract symptoms (8) Scoliosis Status: Chronic Qualifiers: Scoliosis type: unspecified scoliosis - Plan s/p cardiac arrest with cpr and intubation, likely has anoxic brain injury had myoclonic jerks yesterday, none witnessed this am. eeg pending, still has gag reflex and is overbreathing vent at times, there are no peripheral reflexes incuding babinski. echo shows normal ef with no significant valve abnormalities I have d/w and given her full updates, she is aware his prognosis is very poor at present 09/18/2019 is on cefepime, vanc, iv fluids and pressure support prognosis guarded to poor. his 2 children have come to see him yesterday from [place] and 1 [place].
[2019-09-19] MEDS ORDERED: Metoprolol Tartrate 25 MG TAB PO SCH (14:15)
[2019-09-19] MEDS: hydrALAZINE 25 MG TAB PER TUBE SCH ×2 (14:20→20:28)
[2019-09-19] MEDS: Sodium Chloride 0.9% 1,000 ML IV SCH (16:21)
[2019-09-19] MEDS: Metoprolol Tartrate 25 MG TAB PO SCH (20:29)
[2019-09-19] MEDS: Vancomycin 1.5 GRAM/300 ML BAG 1.5 GM in Premix Bag 1 BAG IVPB SCH (22:09)
[2019-09-20 04:13] LABS: #Lymphocytes 0.8 thou/uL (1.20-3.40); #Monocytes 1.4 thou/uL (0.11-0.59); #Neutrophils 11.5 thou/uL (1.40-6.50); %Basophils 0.3 % (0.0-1.0); %Eosinophils 0.2 % (0.0-10.0); %Monocytes 9.8 % (0.0-10.0); %Neutrophils 83.7 % (42.0-75.0); Hemoglobin 12.6 g/dL (14.0-18.0); Mean Corpuscular HGB CONC 31.8 g/dL (32.0-36.0); Mean Corpuscular Hemoglobin 30.9 pg (27.0-31.0); Mean Corpuscular Volume 97.1 fL (78.0-98.0); Mean Platelet Volume 9.3 fL (7.4-10.4); Platelet Count 142 thou/uL (130-400); RBC Distribution Width 12.8 % (11.5-14.5); Red Blood Cell (RBC) Count 4.09 mill/uL (4.70-6.10); White Blood Cell (WBC) Count 13.7 thou/uL (4.8-10.8)
[2019-09-20 04:30] LABS: Anion Gap 16 mmol/L (10-20); BUN (Urea Nitrogen) 18 mg/dL (8.4-25.7); Calc. Creatinine Clearance 94 mL/min (70-130); Calcium 8.5 mg/dL (7.8-10.44); Carbon Dioxide 19 mmol/L (23-31); Chloride 106 mmol/L (98-107); Estimated GFR-MDRD Greater than 90; Glucose 114 mg/dL (83-110); Potassium 3.1 mmol/L (3.5-5.1); Sodium 138 mmol/L (136-145)
[2019-09-20 08:05] LABS: Actual Bicarbonate (HCO3a) 22.7 mEq/L (22-28); Analyzer IN Cardio ER; Base Excess (BEa) 0.4 mEq/L (-2.0 to +3.0); CO2 Tension 30.1 mmHg (35.0-45.0); Calcium, Ionized 1.11 mmol/L (1.12-1.30); Carboxyhemoglobin (COHb) 0.3 gm% (0.0-3.0); Hemoglobin (Hb) 12.8 g/dL (14.0-18.0); O2 Tension (PaO2), arterial 88.7 mmHg (> 70.0); Potassium - ABG Lab 2.96 mmol/L (3.70-5.30)
[2019-09-20 08:14] LABS: ALV-art Gradient 230.175 (0-20); Puncture Site RRA
[2019-09-20] MEDS: Cefepime 2 GM in Sodium Chloride 0.9% 100 ML IVPB SCH ×2 (08:27→20:17)
[2019-09-20] MEDS: hydrALAZINE 25 MG TAB PER TUBE SCH ×3 (08:27→20:18)
[2019-09-20] MEDS: Metoprolol Tartrate 25 MG TAB PO SCH ×2 (08:28→20:18)
--- NOTE | 2019-09-20 09:01 | PRG ---
DATE OF SERVICE: 09/20/2019 SUBJECTIVE: Bob Bolivar remains in the ICU on the vent, unresponsive. No sedation now for almost 72 hours. OBJECTIVE: HEENT: Pupils are dilated, 4 mm. VITAL SIGNS: His pulse is 99, blood pressure 160/80, saturations are 97%, respiratory rate 27. CHEST: Decreased breath sounds. No wheezing. CARDIAC: Normal S1 and S2. No gallops. ABDOMEN: No masses. Severe anoxic injury, status post choking, cardiopulmonary arrest, multiple prolonged CPR. Input from Neurology. EEG being ordered today. X-ray shows a questionable right upper lung infiltrate. ASSESSMENT: 1. Status post prolonged CPR, anoxic injury. 2. Pneumonia. PLAN: Pulmonary cobian, continue supportive care. We are in the process of obtaining EEG, thereafter input from Neurology. One-half hour of critical time. Job ID: [id number]
--- NOTE | 2019-09-20 09:28 | RAD ---
PORTABLE CHEST: DATE: 09/20/2019. PROVIDED CLINICAL HISTORY: Respiratory insufficiency. FINDINGS: Comparison 09/19/2019. More conspicuous right upper lung zone consolidation, possibly accentuated by differences in rotation. Additional significant interval change with respect to the prior examinatio n is not apparent. IMPRESSION: As above. POS: HALEY
[2019-09-20] MEDS ORDERED: Vancomycin 1.5 GRAM/300 ML BAG 1.5 GM in Premix Bag 1 BAG IVPB SCH (10:00)
[2019-09-20] MEDS: Acetaminophen 650 MG Suppository PR PRN (10:28)
--- NOTE | 2019-09-20 10:53 | PDOC.HOSPP ---
- Subjective Encounter Date: 09/20/19 Encounter Time: 07:45 Subjective: on vent, off sedation is seen moving his upper extremities, frequent yawning, not awake or oriented - Objective Vital Signs & Weight: Vital Signs (12 hours) Pulse Resp BP 09/20/19 10:16 98 09/20/19 08:27 89 194/103 H 09/20/19 07:53 89 09/20/19 06:00 22 H 09/20/19 04:35 82 09/20/19 04:00 25 H 09/20/19 02:00 20 09/20/19 00:00 20 09/19/19 23:16 88 181/83 H Weight Admit Weight 178 lb 3.2 oz Weight 178 lb 3.2 oz Most Recent Monitor Data Heart Rate from ECG 94 NIBP 189/98 NIBP BP-Mean 128 Respiration from ECG 26 SpO2 98 I&O: 09/19/19 09/20/19 09/21/19 06:59 06:59 06:59 Intake Total 2003 1859 Output Total 9010 4485 100 [facility] -536 -2575 -100 Result Diagrams: 09/20/19 03:09 09/20/19 03:09 Hospitalist ROS - Medication Medications: Active Medications Generic Name Dose Route Start Last Admin Trade Name Freq PRN Reason Stop Dose Admin Acetaminophen 650 mg 09/18/19 00:29 09/20/19 10:28 Tylenol [place] 650 mg Q4H PRN Administration Headache/Fever/Mild Pain (1-3) Hydralazine HCl 50 mg 09/19/19 15:00 09/20/19 08:27 Apresoline PER TUBE 50 mg TID ARLYN Administration Sodium Chloride 1,000 mls @ 70 mls/hr 09/18/19 01:00 09/19/19 16:21 Normal Saline 0.9% IV 1,000 mls .[id number] ARLYN Administration Cefepime HCl 2 gm/ Sodium 100 mls @ 200 mls/hr 09/18/19 09:00 09/20/19 08:27 Chloride IVPB 100 mls Q12H ARLYN Administration Metoprolol Tartrate 25 mg 09/19/19 21:00 09/20/19 08:28 Lopressor PO 25 mg BID ARLYN Administration - Exam General Appearance: ill appearing Eye: PERRL, anicteric sclera ENT: no oropharyngeal lesions, dry oral mucosa Neck: supple, no JVD Heart: RRR, murmur present Respiratory: no wheezes, no rales, rhonchi Gastrointestinal: soft, non-tender, non-distended, normal bowel sounds Extremities: no cyanosis, no edema Neurological: cranial nerve grossly intact, no focal deficits Hosp A/P (1) Respiratory failure Code(s): J96.90 - RESPIRATORY FAILURE, UNSP, UNSP W HYPOXIA OR HYPERCAPNIA Status: Acute Qualifiers: Chronicity: acute (2) Sudden cardiac arrest Code(s): I46.9 - CARDIAC ARREST, CAUSE UNSPECIFIED Status: Acute (3) MINO (acute kidney injury) Code(s): N17.9 - ACUTE KIDNEY FAILURE, UNSPECIFIED Status: Acute (4) Anoxic brain damage Status: Suspected (5) CAD (coronary artery disease) Code(s): I25.10 - ATHSCL HEART DISEASE OF [place] CORONARY ARTERY W/O ANG PCTRS Status: Chronic Qualifiers: Coronary Disease-Associated Artery/Lesion type: [place] artery [place] vs. transplanted heart: [place] heart Associated angina: without angina Qualified Code(s): I25.10 - Atherosclerotic heart disease of [place] coronary artery without angina pectoris (6) Dyslipidemia Code(s): E78.5 - HYPERLIPIDEMIA, UNSPECIFIED Status: Chronic (7) BPH (benign prostatic hyperplasia) Code(s): N40.0 - BENIGN PROSTATIC HYPERPLASIA WITHOUT LOWER URINRY TRACT SYMP Status: Chronic Qualifiers: Lower urinary tract symptom presence: unspecified whether lower urinary tract symptoms present Qualified Code(s): N40.0 - Benign prostatic hyperplasia without lower urinary tract symptoms (8) Scoliosis Status: Chronic Qualifiers: Scoliosis type: unspecified scoliosis - Plan s/p cardiac arrest with cpr and intubation, has anoxic brain injury had very frequent myoclonic jerks on 09/18/2019, very rarely seen now per staff. eeg results pending, still has gag reflex and is overbreathing vent, is seen moving upper extremities without a purpose. echo shows normal ef with no significant valve abnormalities I have d/w and given her full updates, she is aware his prognosis is very poor at present 09/18/2019 is on cefepime, vanc, iv fluids and pressure support prognosis guarded to poor. await neuro input
--- NOTE | 2019-09-20 11:16 | PDOC.HOSPP ---
- Subjective Encounter Date: 09/20/19 non-verbal - Objective Vital Signs & Weight: Vital Signs (12 hours) Pulse Resp BP 09/20/19 10:16 98 09/20/19 08:27 89 194/103 H 09/20/19 07:53 89 09/20/19 06:00 22 H 09/20/19 04:35 82 09/20/19 04:00 25 H 09/20/19 02:00 20 09/20/19 00:00 20 09/19/19 23:16 88 181/83 H Weight Admit Weight 178 lb 3.2 oz Weight 178 lb 3.2 oz Most Recent Monitor Data Heart Rate from ECG 94 NIBP 189/98 NIBP BP-Mean 128 Respiration from ECG 26 SpO2 98 I&O: 09/19/19 09/20/19 09/21/19 06:59 06:59 06:59 Intake Total 2003 1859 Output Total 5950 4435 100 Balance -536 -2575 -100 Result Diagrams: 09/20/19 03:09 09/20/19 03:09 Radiology Reviewed by me: Yes EKG Reviewed by me: Yes Hospitalist ROS - Review of Systems ROS unobtainable: due to mental status - Medication Medications: Active Medications Generic Name Dose Route Start Last Admin Trade Name Freq PRN Reason Stop Dose Admin Acetaminophen 650 mg 09/18/19 00:29 09/20/19 10:28 Tylenol [place] 650 mg Q4H PRN Administration Headache/Fever/Mild Pain (1-3) Hydralazine HCl 50 mg 09/19/19 15:00 09/20/19 08:27 Apresoline PER TUBE 50 mg TID ARLYN Administration Sodium Chloride 1,000 mls @ 70 mls/hr 09/18/19 01:00 09/19/19 16:21 Normal Saline 0.9% IV 1,000 mls .[id number] ARLYN Administration Cefepime HCl 2 gm/ Sodium 100 mls @ 200 mls/hr 09/18/19 09:00 09/20/19 08:27 Chloride IVPB 100 mls Q12H ARLYN Administration Metoprolol Tartrate 25 mg 09/19/19 21:00 09/20/19 08:28 Lopressor PO 25 mg BID ARLYN Administration - Exam General Appearance: ill appearing Eye: PERRL, anicteric sclera ENT: normocephalic atraumatic, no oropharyngeal lesions, moist mucosa Neck: supple, symmetric Heart: RRR, no murmur, no gallops Respiratory: CTAB Gastrointestinal: soft Extremities: no cyanosis, no clubbing Skin: normal turgor Neurological - other findings: Pupils 4 mm reactive to light. Gag positive. Cough positive. Right gaze pre Musculoskeletal - other findings: Increased tone - left. Withdraws to nail bed pressure Right >> Left Psychiatric: somnolent, lethargic Hosp A/P (1) Altered mental status Code(s): R41.82 - ALTERED MENTAL STATUS, UNSPECIFIED Status: Acute Qualifiers: Altered mental status type: persistent vegetative state Qualified Code(s): R40.3 - Persistent vegetative state Plan: s/p cardiac arrest with cpr and intubation . Most likely anoxic brain injury Concern about stroke. Right gaze preference and right Babinski. Consider MRI Brain EEG reviewed which did not reveal any seizure activity. No muscle jerks noted Continue Neurochecks every 4 hours. Continue medical management per prmary team. He has partially positive brain stem reflexes and long tract signs. OFF sedation for more than 24 hours. Chances of functional meaningful recovery are grave. Plan discussed with the nursing staff and primary attending (2) Altered mental status Code(s): R41.82 - ALTERED MENTAL STATUS, UNSPECIFIED Status: Acute - Plan old records reviewed/req, DVT proph w/SCDs
[2019-09-20] MEDS: Sodium Chloride 0.9% 1,000 ML IV SCH (12:15)
--- NOTE | 2019-09-20 13:58 | EEG ---
Referring Physician: Azeem BROOKE EEG # [id number] TEST TYPE: ROUTINE PORTABLE INPATIENT REPORT: This EEG was performed using 24 channel [employer] video digital EEG machine with 24 disc electrodes. This is a routine video EEG recording. BACKGROUND: The posterior background rhythm is not observed. HYPERVENTILATION: Was not performed. PHOTIC STIMULATION: No significant response seen with photic stimulation. SLEEP: No stage change is observed. EEG DIAGNOSIS: 1.) Generalized irregular theta and delta activity. 2.) Absence of posterior background rhythm. CLINICAL INTERPRETATION: THIS EEG IS CONSISTENT WITH MODERATE GENERALIZED NONSPECIFIC CEREBRAL DYSFUNCTION. NO ICTAL OR INTERICTAL EPILEPTIFORM ABNORMALITIES SEEN DURING THE RECORDING. Manager Of Distribution: ROCKY [employer] Worker: EEG.MS MTDD
[2019-09-20] MEDS ORDERED: Lorazepam 2 MG/ML VIAL ONE (14:39)
--- NOTE | 2019-09-20 14:47 | PDOC.PALCO ---
Palliative Care Consult - Consult Details Requesting Physician: Dr Aaron Reason for Consult: goals of care, family support, complex decision-making - Pertinent HPI 79 year old male who resides in a private home with his . 09/17/19 Mr Bolivar was eating dinner, then when his was in the kitchen she heart a cough with related "gurgling" sounds coming from her , she found him slumped over the kitchen table, she called EMS. He was transported to s/p cardiac arrest he was intubated, coded multiple times then transferred to [facility] for admit to CCU. Currently in CCU, mechanical ventilation. - Pertinent PMH Hypertension, CAD, Chronic back pain - Social History Smoking Status: Unknown if ever smoked Smoking: no tobacco exposure Alcohol Use: none Drug Use History: none Living Situation: - Medications MAR Reviewed: Yes - Allergies Allergies/Adverse Reactions: Allergies Allergy/AdvReac Type Severity Reaction Status Date / Time sulfamethoxazole Allergy Rash Verified 08/12/19 12:00 [From Bactrim] trimethoprim [From Bactrim] Allergy Rash Verified 08/12/19 12:00 - Subjective Mechanical ventilation - ROS Non Response: due to endotracheal tube, due to mental status - Objective Vital Signs: Vital Signs - Most Recent Temp Pulse Resp BP Pulse Ox 100.6 F H 80 20 164/92 H 92 L 09/20/19 12:00 09/20/19 14:25 09/20/19 14:00 09/20/19 14:25 09/20/19 08:00 Palliative Performance Scale: 10 - Physical Exam Constitutional: encephalitic, ill appearing HEENT: EOMI, moist MMs, sclera anicteric Respiratory: no wheezing, unlabored breathing Deviation from normal: mechanical ventiltaion Cardiovascular: RRR Gastrointestinal: soft, non-tender, incontinent Genitourinary: sni catheter Musculoskeletal: no cyanosis, no clubbing Neurology: no focal deficits Skin: cap refill <2 seconds - Problem List (1) MINO (acute kidney injury) Code(s): N17.9 - ACUTE KIDNEY FAILURE, UNSPECIFIED Current Visit: Yes Status : Acute (2) Altered mental status Code(s): R41.82 - ALTERED MENTAL STATUS, UNSPECIFIED Current Visit: Yes Status: Acute (3) Respiratory failure Code(s): J96.90 - RESPIRATORY FAILURE, UNSP, UNSP W HYPOXIA OR HYPERCAPNIA Current Visit: Yes Status: Acute Qualifiers: Chronicity: acute (4) Sudden cardiac arrest Code(s): I46.9 - CARDIAC ARREST, CAUSE UNSPECIFIED Current Visit: Yes Status : Acute (5) Anoxic brain damage Current Visit: Yes Status: Suspected - Plan/Recommendations Plan: Palliative Care initiated patient and family. Family meeting coordinated tomorrow 09/21/2019 at 11 am. Physicians will address current health status with family, and poor meaningful recovery potential related to anoxic brain injury s/ p CPR. Emotional support offered. Please also refer to Guzman Chan RNnuclear operator notes in note section. *PC communicated family meeting with Dr Palomino and Dr Hernandez *Spiritual care notified [50] minutes spent on this encounter with >50% of the time in counseling and coordination of care. Thank you for this very appropriate consult.
--- NOTE | 2019-09-20 17:03 | MRI ---
MRI BRAIN WITHOUT CONTRAST: History: Change in mental status. FINDINGS: There is tiny focus of restricted diffusion in the left gautam radiata. There is a tiny focus of rest ricted diffusion seen in the posteromedial aspect of the right parietal cortex. These are consistent with recent/acute tiny infarctions. The ventricular size is appropriate and the basilar cisterns lacy nt. There are foci of T2 prolongation in the periventricular white matter consistent with mild chroni c small ischemic disease. No hemorrhage, midline shift, or abnormal extraaxial fluid collections are seen. There is mucosal disease in the paranasal sinuses and fluid in the mastoid air cells. IMPRESSION: A couple of tiny recent/acute infarctions as discussed above. POS: [facility]
[2019-09-21] MEDS: Sodium Chloride 0.9% 1,000 ML IV SCH ×2 (00:15→14:23)
[2019-09-21] MEDS: Acetaminophen 650 MG Suppository PR PRN ×2 (00:26→20:24)
[2019-09-21 03:43] LABS: #Lymphocytes 1.2 thou/uL (1.20-3.40); #Monocytes 1.6 thou/uL (0.11-0.59); #Neutrophils 8.2 thou/uL (1.40-6.50); %Basophils 0.3 % (0.0-1.0); %Eosinophils 0.2 % (0.0-10.0); %Lymphocytes 10.7 % (21.0-51.0); %Monocytes 14.7 % (0.0-10.0); %Neutrophils 74.1 % (42.0-75.0); Hemoglobin 13.4 g/dL (14.0-18.0); Mean Corpuscular HGB CONC 33.9 g/dL (32.0-36.0); Mean Corpuscular Hemoglobin 32.2 pg (27.0-31.0); Mean Corpuscular Volume 95.2 fL (78.0-98.0); Mean Platelet Volume 8.7 fL (7.4-10.4); Platelet Count 172 thou/uL (130-400); RBC Distribution Width 12.6 % (11.5-14.5); Red Blood Cell (RBC) Count 4.15 mill/uL (4.70-6.10); White Blood Cell (WBC) Count 11.1 thou/uL (4.8-10.8)
[2019-09-21 04:16] LABS: Anion Gap 13 mmol/L (10-20); BUN (Urea Nitrogen) 23 mg/dL (8.4-25.7); Calc. Creatinine Clearance 98 mL/min (70-130); Calcium 8.5 mg/dL (7.8-10.44); Carbon Dioxide 24 mmol/L (23-31); Chloride 107 mmol/L (98-107); Estimated GFR-MDRD Greater than 90; Glucose 98 mg/dL (83-110); Sodium 141 mmol/L (136-145)
[2019-09-21 04:18] LABS: Potassium 2.9 mmol/L (3.5-5.1)
[2019-09-21] MEDS ORDERED: Magnesium 2 GM/50 ML 2 GM in Premix Bag 1 BAG IVPB PRN (04:39)
[2019-09-21] MEDS ORDERED: Potassium Phosphate 15 MMOL in Sodium Chloride 0.9% 250 ML 250 ML IV PRN (04:39)
[2019-09-21] MEDS ORDERED: Potassium Phosphate 12 MMOL in Sodium Chloride 0.9% 250 ML 250 ML IV PRN (04:39)
[2019-09-21] MEDS ORDERED: PHOS-NAK 1 PKT PACK PO PRN ×2 (04:39)
[2019-09-21] MEDS ORDERED: CCU ELECTROLYTE REPLACEMENT PROTOCOL FS PRN (04:39)
[2019-09-21] MEDS ORDERED: Magnesium Oxide 400 MG TAB PO PRN ×2 (04:39)
[2019-09-21] MEDS ORDERED: Potassium Chloride 40 MEQ in Sodium Chloride 0.9% 250 ML 250 ML IVPB PRN (04:39)
[2019-09-21] MEDS ORDERED: Potassium Chloride 20 MEQ TAB PO PRN (04:39)
[2019-09-21] MEDS ORDERED: Potassium Phosphate 9 MMOL in Sodium Chloride 0.9% 100 ML IVPB PRN (04:39)
[2019-09-21] MEDS: Potassium Chloride 40 MEQ in Premix Bag 1 BAG IVPB PRN ×2 (04:52→09:33)
[2019-09-21 07:16] LABS: Actual Bicarbonate (HCO3a) 26.5 mEq/L (22-28); Base Excess (BEa) 3.1 mEq/L (-2.0 to +3.0); CO2 Tension 36.7 mmHg (35.0-45.0); Calcium, Ionized 1.09 mmol/L (1.12-1.30); Carboxyhemoglobin (COHb) 0.6 gm% (0.0-3.0); Hemoglobin (Hb) 13.3 g/dL (14.0-18.0); O2 Tension (PaO2), arterial 88.7 mmHg (> 70.0); Potassium - ABG Lab 3.76 mmol/L (3.70-5.30); pH, Arterial 7.48 (7.35-7.45)
[2019-09-21 07:17] LABS: ALV-art Gradient 221.925 (0-20); Puncture Site RRA
--- NOTE | 2019-09-21 07:57 | RAD ---
PORTABLE CHEST: DATE: 09/21/2019. PROVIDED CLINICAL HISTORY: Respiratory insufficiency. FINDINGS: Comparison 09/20/2019. Significant interval change with respect to the prior examination is not appar ent. IMPRESSION: As above. POS: [facility]
[2019-09-21] MEDS ORDERED: hydrALAZINE 20 MG/ML VIAL ONE (08:20)
[2019-09-21] MEDS: hydrALAZINE 25 MG TAB PER TUBE SCH ×3 (08:28→20:28)
[2019-09-21] MEDS: Cefepime 2 GM in Sodium Chloride 0.9% 100 ML IVPB SCH ×2 (08:28→20:27)
[2019-09-21] MEDS: Metoprolol Tartrate 25 MG TAB PO SCH ×2 (08:29→20:28)
--- NOTE | 2019-09-21 08:49 | PRG ---
DATE OF SERVICE: 09/21/2019 SUBJECTIVE: Bob Bolivar has been off all sedation since he got admitted, day #3. He remains unresponsive. Pupils are dilated. OBJECTIVE: VITAL SIGNS: Pulse 84, blood pressure 172/100, respiratory rate 18, , temperature 99. CHEST: Decreased breath sounds. No wheezing. CARDIAC: Normal S1 and S2. No gallops. ABDOMEN: No masses. LABORATORY DATA: White count 11,000. Lytes are normal. Potassium 2.9. The pO2 is 88, pCO2 is . His x-ray taken today shows questionable right upper lung infiltrate. He had an EEG done, which shows irregular activity. He also had an MRI done, nonspecific acute infarct. ASSESSMENT: 1. Severe anoxic injury. 2. Respiratory failure, possibly aspiration pneumonia. PLAN: Discussed with the family today regarding withdrawal and comfort care. We will follow. Job ID: [id number]
[2019-09-21 09:13] LABS: Potassium 3.1 mmol/L (3.5-5.1)
[2019-09-21] MEDS: cloNIDine 0.1 MG TAB PER TUBE SCH ×3 (09:33→20:28)
--- NOTE | 2019-09-21 10:27 | PDOC.HOSPP ---
- Subjective Encounter Date: 09/21/19 non-verbal - Objective Vital Signs & Weight: Vital Signs (12 hours) Pulse Resp BP Pulse Ox 09/21/19 10:19 81 162/88 H 09/21/19 10:00 14 09/21/19 09:33 172/121 H 09/21/19 08:29 84 172/121 H 09/21/19 08:28 84 172/121 H 09/21/19 08:00 13 99 09/21/19 06:57 84 200/98 H 09/21/19 06:00 13 09/21/19 04:00 15 09/21/19 02:19 104 H 188/103 H 09/21/19 02:00 17 09/21/19 00:00 19 Weight Admit Weight 178 lb 3.2 oz Weight 178 lb 3.2 oz Most Recent Monitor Data Heart Rate from ECG 76 NIBP 162/88 NIBP BP-Mean 112 Respiration from ECG 10 SpO2 99 I&O: 09/20/19 09/21/19 09/22/19 06:59 06:59 06:59 Intake Total 1860 1708 200 Output Total 4435 1715 200 Balance -2575 -7 0 Result Diagrams: 09/21/19 03:08 09/21/19 08:46 Radiology Reviewed by me: Yes EKG Reviewed by me: Yes Hospitalist ROS - Review of Systems ROS unobtainable: due to mental status - Medication Medications: Active Medications Generic Name Dose Route Start Last Admin Trade Name Freq PRN Reason Stop Dose Admin Acetaminophen 650 mg 09/18/19 00:29 09/21/19 00:26 Tylenol [place] 650 mg Q4H PRN Administration Headache/Fever/Mild Pain (1-3) Clonidine 0.1 mg 09/21/19 09:00 09/21/19 09:33 Catapres PER TUBE 0.1 mg TID ARLYN Administration Hydralazine HCl 50 mg 09/19/19 15:00 09/21/19 08:28 Apresoline PER TUBE 50 mg TID ARLYN Administration Sodium Chloride 1,000 mls @ 70 mls/hr 09/18/19 01:00 09/21/19 00:15 Normal Saline 0.9% IV 1,000 mls .[id number] ARLYN Administration Cefepime HCl 2 gm/ Sodium 100 mls @ 200 mls/hr 09/18/19 09:00 09/21/19 08:28 Chloride IVPB 100 mls Q12H ARLYN Administration Potassium Chloride 40 meq/ 100 mls @ 50 mls/hr 09/21/19 04:39 09/21/19 09:33 Device IVPB 100 mls ASDIR PRN Administration FOR SERUM K+ 2.5 - 3.5 Metoprolol Tartrate 25 mg 09/19/19 21:00 09/21/19 08:29 Lopressor PO 25 mg BID ARLYN Administration - Exam General Appearance: ill appearing Eye: PERRL, anicteric sclera ENT: normocephalic atraumatic, no oropharyngeal lesions, moist mucosa Neck: supple, symmetric Heart: RRR Respiratory: CTAB Gastrointestinal: soft Extremities: no cyanosis, no clubbing Skin: normal turgor, no lesions, no rashes Neurological - other findings: Pupils minimally reactive. Gag +,Corneals +ve, Musculoskeletal - other findings: Tone increased on left. Minimal withdrwal Psychiatric: somnolent, lethargic Hosp A/P (1) Altered mental status Code(s): R41.82 - ALTERED MENTAL STATUS, UNSPECIFIED Status: Acute Qualifiers: Altered mental status type: persistent vegetative state Qualified Code(s): R40.3 - Persistent vegetative state Plan: s/p cardiac arrest with cpr and intubation . Most likely anoxic brain injury MRI Brain reviewed which is consistent with tiny recent infarctions. EEG reviewed which did not reveal any seizure activity. No muscle jerks noted Continue Neurochecks every 4 hours. Continue medical management per prmary team. He has partially preserved brain stem reflexes and long tract signs. OFF sedation for more than 48 hours. Chances of functional meaningful recovery are grave. Family meeting today to discuss prognosis. Palliative team on board. (2) Altered mental status Code(s): R41.82 - ALTERED MENTAL STATUS, UNSPECIFIED Status: Acute
[2019-09-21] MEDS ORDERED: Hyoscyamine Sulfate SL 0.125 mg Tablet PO PRN (12:04)
[2019-09-21] MEDS ORDERED: Lorazepam 2 MG/ML VIAL SLOW IVP PRN ×2 (12:05→14:47)
[2019-09-21] MEDS ORDERED: Morphine 2 MG/ML SYRINGE SLOW IVP PRN (12:06)
--- NOTE | 2019-09-21 12:24 | PDOC.HOSPP ---
- Subjective Encounter Date: 09/21/19 Encounter Time: 08:40 Subjective: on vent obtunded, off sedation from admission no purposefull movement seen - Objective Vital Signs & Weight: Vital Signs (12 hours) Pulse Resp BP Pulse Ox 09/21/19 10:19 81 162/88 H 09/21/19 10:00 14 09/21/19 09:33 172/121 H 09/21/19 08:29 84 172/121 H 09/21/19 08:28 84 172/121 H 09/21/19 08:00 13 99 09/21/19 06:57 84 200/98 H 09/21/19 06:00 13 09/21/19 04:00 15 09/21/19 02:19 104 H 188/103 H 09/21/19 02:00 17 Weight Admit Weight 178 lb 3.2 oz Weight 178 lb 3.2 oz Most Recent Monitor Data Heart Rate from ECG 81 NIBP 152/109 NIBP BP-Mean 123 Respiration from ECG 41 SpO2 98 I&O: 09/20/19 09/21/19 09/22/19 06:59 06:59 06:59 Intake Total 1860 1708 200 Output Total 4435 1715 200 Balance -2575 -7 0 Result Diagrams: 09/21/19 03:08 09/21/19 08:46 Hospitalist ROS - Medication Medications: Active Medications Generic Name Dose Route Start Last Admin Trade Name Freq PRN Reason Stop Dose Admin Acetaminophen 650 mg 09/18/19 00:29 09/21/19 00:26 Tylenol [place] 650 mg Q4H PRN Administration Headache/Fever/Mild Pain (1-3) Clonidine 0.1 mg 09/21/19 09:00 09/21/19 09:33 Catapres PER TUBE 0.1 mg TID ARLYN Administration Hydralazine HCl 50 mg 09/19/19 15:00 09/21/19 08:28 Apresoline PER TUBE 50 mg TID ARLYN Administration Sodium Chloride 1,000 mls @ 70 mls/hr 09/18/19 01:00 09/21/19 00:15 Normal Saline 0.9% IV 1,000 mls .[id number] ARLYN Administration Cefepime HCl 2 gm/ Sodium 100 mls @ 200 mls/hr 09/18/19 09:00 04/28/20 08:28 Chloride IVPB 100 mls Q12H ARLYN Administration Potassium Chloride 40 meq/ 100 mls @ 50 mls/hr 09/21/19 04:39 09/21/19 09:33 Device IVPB 100 mls ASDIR PRN Administration FOR SERUM K+ 2.5 - 3.5 Metoprolol Tartrate 25 mg 09/19/19 21:00 09/21/19 08:29 Lopressor PO 25 mg BID ARLYN Administration - Exam Eye: anicteric sclera ENT: no oropharyngeal lesions, dry oral mucosa Neck: supple, no JVD Heart: RRR, no murmur Respiratory: no wheezes, no rales, rhonchi Gastrointestinal: soft, non-tender, non-distended, normal bowel sounds Extremities: no cyanosis, no edema Neurological: no focal deficits Hosp A/P (1) Respiratory failure Code(s): J96.90 - RESPIRATORY FAILURE, UNSP, UNSP W HYPOXIA OR HYPERCAPNIA Status: Acute Qualifiers: Chronicity: acute (2) Sudden cardiac arrest Code(s): I46.9 - CARDIAC ARREST, CAUSE UNSPECIFIED Status: Acute (3) MINO (acute kidney injury) Code(s): N17.9 - ACUTE KIDNEY FAILURE, UNSPECIFIED Status: Acute (4) Anoxic brain damage Status: Acute (5) CAD (coronary artery disease) Code(s): I25.10 - ATHSCL HEART DISEASE OF [place] CORONARY ARTERY W/O ANG PCTRS Status: Chronic Qualifiers: Coronary Disease-Associated Artery/Lesion type: [place] artery [place] vs. transplanted heart: [place] heart Associated angina: without angina Qualified Code(s): I25.10 - Atherosclerotic heart disease of [place] coronary artery without angina pectoris (6) Dyslipidemia Code(s): E78.5 - HYPERLIPIDEMIA, UNSPECIFIED Status: Chronic (7) BPH (benign prostatic hyperplasia) Code(s): N40.0 - BENIGN PROSTATIC HYPERPLASIA WITHOUT LOWER URINRY TRACT SYMP Status: Chronic Qualifiers: Lower urinary tract symptom presence: unspecified whether lower urinary tract symptoms present Qualified Code(s): N40.0 - Benign prostatic hyperplasia without lower urinary tract symptoms (8) Scoliosis Status: Chronic Qualifiers: Scoliosis type: unspecified scoliosis - Plan s/p cardiac arrest with cpr and intubation, has anoxic brain injury had very frequent myoclonic jerks on 09/18/2019, very rarely seen now per staff. eeg results noted, still has gag reflex and is overbreathing vent. echo shows normal ef with no significant valve abnormalities I have d/w and given her full updates, she is aware his prognosis is very poor at present 09/18/2019 is on cefepime, iv fluids, hydralazine, lopressor, clonidine. prognosis guarded to poor. family is meeting with neurologist at 11 am to discuss further care including compassionate withdrawal per staff. will f/u
--- NOTE | 2019-09-21 12:26 | PDOC.PALPN ---
Palliative Progress Note - Subjective Mechanically ventilated, minimally responsive, off of sedation. - Objective Vital Signs: Vital Signs - Most Recent Temp Pulse Resp BP Pulse Ox 100.6 F H 81 14 162/88 H 99 09/20/19 12:00 09/21/19 10:19 09/21/19 10:00 09/21/19 10:19 09/21/19 08:00 - Physical Exam Constitutional: ill appearing HEENT: moist MMs, sclera anicteric Deviation from normal: mechanical ventilation Cardiovascular: RRR Gastrointestinal: non-tender, incontinent Genitourinary: sin catheter Musculoskeletal: no cyanosis, no clubbing, pulses present Deviation from normal: minimal withdrawl Skin: cap refill <2 seconds Deviation from normal: Pallor Deviation from normal: somnlent - Assessment (1) MINO (acute kidney injury) Code(s): N17.9 - ACUTE KIDNEY FAILURE, UNSPECIFIED Current Visit: Yes Status : Acute (2) Altered mental status Code(s): R41.82 - ALTERED MENTAL STATUS, UNSPECIFIED Current Visit: Yes Status: Acute (3) Respiratory failure Code(s): J96.90 - RESPIRATORY FAILURE, UNSP, UNSP W HYPOXIA OR HYPERCAPNIA Current Visit: Yes Status: Acute Qualifiers: Chronicity: acute (4) Sudden cardiac arrest Code(s): I46.9 - CARDIAC ARREST, CAUSE UNSPECIFIED Current Visit: Yes Status : Acute (5) Anoxic brain damage Current Visit: Yes Status: Acute - Plan Plan: Family to bedside. Lengthy family meeting with patient and two of his three sons in person with the third son on conference call. Dr Pinedo explained patient neurological status and poor meaningful recovery. Family shared Mr Bolivar has a living will and requested that he not be have life sustained on mechanical measures. THe family has elected to compassionately extubate Mr Bolivar. *Dr Palomino and Dr Aaron notified. *Scopolamins and levsin ordered to mitigate secretions post extubation *Morphine and Ativan IVP ordered for terminal restlessness and air hunger post extubation *Spiritual care notified Patient son in [place] to arrive this evening, family electing to compassionately extubate 09/22/2019 at 10am. Emotional support and Theraputic listening offered. Please also refer to Guzman Chan RNsoftware consultant notes in note section. [90] minutes spent on this encounter with >50% of the time in counseling and coordination of care. - ROS Non Response: due to endotracheal tube, due to mental status
[2019-09-21] MEDS ORDERED: Scopolamine 1.5 mg/72 hour Patch TD SCH (13:00)
[2019-09-21] MEDS ORDERED: Morphine 4 MG/ML VIAL SLOW IVP PRN (14:58)
[2019-09-21] MEDS: Lorazepam 2 MG/ML VIAL SLOW IVP PRN (15:02)
[2019-09-21] MEDS: Morphine 2 MG/ML SYRINGE SLOW IVP PRN (20:24)
[2019-09-22] MEDS: Sodium Chloride 0.9% 1,000 ML IV SCH (04:28)
[2019-09-22 05:07] LABS: Anion Gap 13 mmol/L (10-20); BUN (Urea Nitrogen) 35 mg/dL (8.4-25.7); Calc. Creatinine Clearance 87 mL/min (70-130); Calcium 7.8 mg/dL (7.8-10.44); Carbon Dioxide 24 mmol/L (23-31); Chloride 111 mmol/L (98-107); Estimated GFR-MDRD Greater than 90; Glucose 100 mg/dL (83-110); Potassium 3.6 mmol/L (3.5-5.1); Sodium 144 mmol/L (136-145)
[2019-09-22 06:19] LABS: Band 5 % (5-11); Eosinophils 1 % (0-10); Hemoglobin 11.8 g/dL (14.0-18.0); Lymphocytes 18 % (21-51); MDiff Complete? YES; Mean Corpuscular HGB CONC 31.9 g/dL (32.0-36.0); Mean Corpuscular Hemoglobin 30.8 pg (27.0-31.0); Mean Corpuscular Volume 96.8 fL (78.0-98.0); Mean Platelet Volume 9.8 fL (7.4-10.4); Monocytes 13 % (0-10); Myelocyte 1 % (0-0); Neutrophil 62 % (42-75); Platelet Count 157 thou/uL (130-400); RBC Distribution Width 12.6 % (11.5-14.5); Red Blood Cell (RBC) Count 3.83 mill/uL (4.70-6.10); White Blood Cell (WBC) Count 9.6 thou/uL (4.8-10.8)
[2019-09-22] MEDS: hydrALAZINE 25 MG TAB PER TUBE SCH ×3 (08:24→20:45)
[2019-09-22] MEDS: Metoprolol Tartrate 25 MG TAB PO SCH ×2 (08:25→20:46)
[2019-09-22] MEDS: cloNIDine 0.1 MG TAB PER TUBE SCH ×3 (08:25→20:45)
--- NOTE | 2019-09-22 08:45 | PRG ---
DATE OF SERVICE: 09/22/2019 SUBJECTIVE: Bob Bolivar this morning, remains intubated in the vent, pretty much off IV sedation. OBJECTIVE: VITAL SIGNS: His temperature 100.6, blood pressure 185/80, saturations 100%, respirations 24. HEENT: Pupils dilated and unresponsive. CHEST: Decreased breath sounds. No wheezing. CARDIAC: Normal S1 and S2. No gallops. ABDOMEN: No mass. IMPRESSION: Anoxic injury, status post cardiac arrest, status post choking on food presumably, status post cardiopulmonary resuscitation multiple times. PLAN: Unfortunately, the patient has sustained severe anoxic injury. Has not had any significant improvement for several days. Neurology was consulted and they agree family is to consider comfort measures extubation. Stop daily lab, daily x-rays etc. Job ID: [id number]
--- NOTE | 2019-09-22 10:03 | PDOC.PALPN ---
Palliative Progress Note - Subjective Mechanically intubated, non responsive. - Objective Vital Signs: Vital Signs - Most Recent Temp Pulse Resp BP Pulse Ox 100.6 F H 76 25 H 185/80 H 100 09/20/19 12:00 09/22/19 08:24 09/22/19 08:00 09/22/19 08:25 09/22/19 08:00 - Physical Exam Constitutional: ill appearing HEENT: moist MMs, sclera anicteric Deviation from normal: mechanical ventilation, clear to upper lobes Cardiovascular: RRR Gastrointestinal: soft, non-tender Deviation from normal: OG Genitourinary: sin catheter Musculoskeletal: no clubbing Skin: cap refill <2 seconds, no rash - Assessment (1) MINO (acute kidney injury) Code(s): N17.9 - ACUTE KIDNEY FAILURE, UNSPECIFIED Current Visit: Yes Status : Acute (2) Altered mental status Code(s): R41.82 - ALTERED MENTAL STATUS, UNSPECIFIED Current Visit: Yes Status: Acute (3) Respiratory failure Code(s): J96.90 - RESPIRATORY FAILURE, UNSP, UNSP W HYPOXIA OR HYPERCAPNIA Current Visit: Yes Status: Acute Qualifiers: Chronicity: acute (4) Sudden cardiac arrest Code(s): I46.9 - CARDIAC ARREST, CAUSE UNSPECIFIED Current Visit: Yes Status : Acute (5) Anoxic brain damage Current Visit: Yes Status: Acute - Plan Plan: Family to bedside for compassionate extubation. Reviewed medications for post extubation and comfort measures. Emotional support and education in relation to end of life. Discussed with Dr Palomino, if needed four hours after post extubation will consult hospice for continuation of comfort measures if family agreeable. Spiritual care aware. Guzman Chan RNengineering programmer notified Dr Palomino, Dr Aaron, and respiratory family. [60] minutes spent on this encounter with >50% of the time in counseling and coordination of care. - ROS Non Response: due to endotracheal tube, due to mental status
[2019-09-22] MEDS: Morphine 2 MG/ML SYRINGE SLOW IVP PRN ×14 (10:31→22:35)
[2019-09-22] MEDS: Lorazepam 2 MG/ML VIAL SLOW IVP PRN ×6 (10:31→20:56)
[2019-09-23] MEDS: Morphine 2 MG/ML SYRINGE SLOW IVP PRN ×5 (00:01→07:44)
[2019-09-23] MEDS: Acetaminophen 650 MG Suppository PR PRN ×2 (01:48→06:31)
[2019-09-23] MEDS: Lorazepam 2 MG/ML VIAL SLOW IVP PRN ×3 (04:36→06:20)
[2019-09-23 07:35] VITALS: BP 122/71; TEMP 102.8
--- NOTE | 2019-09-23 16:40 | PDOC.HOSPP ---
- Subjective Encounter Date: 09/22/19 Encounter Time: 09:00 Subjective: is obtunded, on vent, off sedation no purposefull motor activity - Objective Vital Signs & Weight: Vital Signs (12 hours) Temp Pulse Resp BP Pulse Ox 09/23/19 08:00 36 L 09/23/19 07:27 102.8 F H 113 H 28 H 122/71 36 L Weight Admit Weight 178 lb 3.2 oz Weight 174 lb 13.225 oz Most Recent Monitor Data Heart Rate from ECG 99 NIBP 132/85 NIBP BP-Mean 100 Respiration from ECG 27 SpO2 89 I&O: 09/22/19 09/23/19 09/24/19 06:59 06:59 06:59 Intake Total 8 Output Total 1085 805 20 Balance 953 -805 -20 Result Diagrams: 09/22/19 03:45 09/22/19 03:45 - Exam Eye: anicteric sclera ENT: no oropharyngeal lesions, dry oral mucosa Neck: supple, no JVD Heart: RRR, no murmur Respiratory: no wheezes, no rales, rhonchi Gastrointestinal: soft, non-tender, non-distended, normal bowel sounds Extremities: no cyanosis, no edema Neurological: no focal deficits Hosp A/P (1) Respiratory failure Code(s): J96.90 - RESPIRATORY FAILURE, UNSP, UNSP W HYPOXIA OR HYPERCAPNIA Status: Acute Qualifiers: Chronicity: acute (2) Sudden cardiac arrest Code(s): I46.9 - CARDIAC ARREST, CAUSE UNSPECIFIED Status: Acute (3) MINO (acute kidney injury) Code(s): N17.9 - ACUTE KIDNEY FAILURE, UNSPECIFIED Status: Acute (4) Anoxic brain damage Status: Acute (5) CAD (coronary artery disease) Code(s): I25.10 - ATHSCL HEART DISEASE OF [place] CORONARY ARTERY W/O ANG PCTRS Status: Chronic Qualifiers: Coronary Disease-Associated Artery/Lesion type: [place] artery [place] vs. transplanted heart: [place] heart Associated angina: without angina Qualified Code(s): I25.10 - Atherosclerotic heart disease of [place] coronary artery without angina pectoris (6) Dyslipidemia Code(s): E78.5 - HYPERLIPIDEMIA, UNSPECIFIED Status: Chronic (7) BPH (benign prostatic hyperplasia) Code(s): N40.0 - BENIGN PROSTATIC HYPERPLASIA WITHOUT LOWER URINRY TRACT SYMP Status: Chronic Qualifiers: Lower urinary tract symptom presence: unspecified whether lower urinary tract symptoms present Qualified Code(s): N40.0 - Benign prostatic hyperplasia without lower urinary tract symptoms (8) Scoliosis Status: Chronic Qualifiers: Scoliosis type: unspecified scoliosis - Plan s/p cardiac arrest with cpr and intubation, has anoxic brain injury had very frequent myoclonic jerks on 09/18/2019, very rarely seen now per staff. eeg results noted, is overbreathing vent. echo shows normal ef with no significant valve abnormalities I have d/w and given her full updates, she is aware his prognosis is very poor at present 09/18/2019 is on cefepime, iv fluids, hydralazine, lopressor, clonidine. prognosis is poor. family met with neurologist at 11 am and are going for compassionate withdrawal per staff. will f/u
--- NOTE | 2019-09-24 07:56 | DIS ---
DATE OF ADMISSION: 09/17/2019 DATE OF DISCHARGE: 09/23/2019 DATE OF : 09/23/2019 at 8:04 a.m. PRIMARY CAUSE OF : Anoxic brain injury secondary to cardiopulmonary resuscitation from five days, cardiac arrest secondary to aspiration of food five days. SECONDARY CAUSE OF : Coronary artery disease, acute respiratory failure due to choking with hypoxia. BRIEF COURSE DURING HOSPITALIZATION: The patient initially got admitted on the after he was transferred from [place] [facility] for higher level of care. He apparently choked and aspirated while he was eating. This led to cardiac arrest and the patient had CPR done prior to EMS arriving and EMS continued CPR en route to [place] [facility]. He also had cardiopulmonary resuscitation done at the [facility] and was placed on epinephrine drip and was transferred here for higher level of care. Due to above-mentioned process, the patient had sustained anoxic brain injury. He was taken off sedation, despite which the patient was obtunded. He has had consultation with Dr. Pineda and Dr. Solitario for Neurology, Dr. Aaron for Pulmonology. The patient had EEG done on the , which showed moderate generalized nonspecific cerebral dysfunction. No epileptiform abnormalities were seen. All through his stay, the patient remained obtunded with no cognitive or purposeful motor function. The patient had living will, and his and children did not want any resuscitation done on him on admission. 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 He was taken off ventilator on the at 11:00 a.m. He finally breathed his last at 8:04 a.m. on 09/23/2019. Job ID: [id number] MTDD
--- NOTE | 2019-09-25 07:27 | PQF ---
[employer] RejiYAW VIN MILTON MD [id number] CLINICAL DOCUMENTATION CLARIFICATION FORM: POST DISCHARGE Addendum to original discharge summary date: ____ Late entry note date: __ DATE: 09/25/2019 ATTN: Vin Palomino Please exercise your independent, professional judgment in responding to the clarification form. Clinical indicators are provided on the bottom of this form for your review Please check appropriate box(es): [ ] Sepsis [ ] Localized infection without sepsis [ ] Other diagnosis [ x ] Unable to determine In addition, please specify: Present on Admission (POA): [ ] Yes [ ] No [ ] Unable to determine For continuity of documentation, please document condition throughout progress notes and discharge summary. Thank You. CLINICAL INDICATORS - SIGNS / SYMPTOMS / LABS Leukocytosis, patient with leukocytosis 26.3 with elevated lactic acid, nonetheless sepsis protocol was started at the [facility] with IV fluids , cultures and abx cefe/vanc - H and p dated 09/16 by Vern Addison WBC 18.2 on 09/17 and 13.7 on 09/19 - Laboratory Lactic acid is 2.4 on 09/17 - Laboratory Temperature is 101.3 F on 09/17 - Laboratory RISK FACTORS Aspiration pneumonia - Progress note dated 09/20 by Caleb Garner Respiratory failure - Progress note dated 09/20 by Caleb Garner TREATMENTS: IV Vancomycin from 09/17 to 09/19 - Medications IV cefepime started on 09/17 - Medications (This form is maintained as a part of the permanent medical record) 2014 [employer]. All Rights Reserved [email or web address]
== END 2019-09-23 08:04 | disposition expired | DRG 207 ==
LOC: CCU 22:53 → T4-A 09-22 18:08
PROVIDERS: ADMIT Internal Medicine; ATTEND Internal Medicine
PROC: 5A1955Z Respiratory Ventilation, Greater than 96 Consecutive Hours (ICD-10-PCS; principal; 2019-09-17)
DX: J96.01 Acute respiratory failure with hypoxia (principal); J69.0 Pneumonitis due to inhalation of food and vomit; G97.82 Other postprocedural complications and disorders of nervous system; G93.1 Anoxic brain damage, not elsewhere classified; N17.9 Acute kidney failure, unspecified; R40.3 Persistent vegetative state; Z66 Do not resuscitate; Z51.5 Encounter for palliative care; Y84.8 Other medical procedures as the cause of abnormal reaction of the patient, or of later complication, without mention of misadventure at the time of the procedure; I46.8 Cardiac arrest due to other underlying condition; I25.10 Atherosclerotic heart disease of native coronary artery without angina pectoris; G93.89 Other specified disorders of brain; I10 Essential (primary) hypertension; E78.5 Hyperlipidemia, unspecified; E87.5 Hyperkalemia; G25.3 Myoclonus; D72.829 Elevated white blood cell count, unspecified; N40.0 Benign prostatic hyperplasia without lower urinary tract symptoms; M41.9 Scoliosis, unspecified; Z95.5 Presence of coronary angioplasty implant and graft; Z88.1 Allergy status to other antibiotic agents
CPT/HCPCS: 36415; 70551; 71045; 80048; 80053; 80202; 82533; 82805; 83605; 83880; 84484; 85025; 87040; 93306; 94002; 94003; 95816; 95819; J0360; J0692; J2060; J2270; J3370; J3480; J3490